=== PATIENT | female | born 1945 | race Caucasian/White ===

== ENCOUNTER → 2018-08-14 | Outpatient (CLI) | payer MEDICARE, BC ==
[~2018-08-14] MED LIST: ACETAMINOPHEN120 MG RC; AMITIZA24 MCG PO; AMLODIPINE BESY10 MG PO; ATORVASTATIN CA10 MG PO; BACLOFEN10 MG PO; BENAZEPRIL HCL5 MG PO; CARVEDILOL12.5 MG PO; EVISTA60 MG PO; EXCEDRIN EXTRA1 EAC1; GLIPIZIDE5 MG PO; HYDROCODONE; MELOXICAM7.5 MG PO; METFORMIN HCL500 MG PO; NEXIUM5 MG PO; ROPINIROLE HCL1 MG PO; ULTRAM50 MG PO; VITAMIN B12 INJ; ZANAFLEX2 M1
--- NOTE | 2018-08-14 16:19 | Diagnostic Imaging Report ---
EXAM: Modified barium swallow with Speech Pathologist INDICATION: ^[id number] ^1130 ^DYSPHAGIA COMPARISON: None available. RADIATION DOSE: Fluoroscopy Time: 1.6 min Dose (Kerma) Area Product: 5.68 Gycm2 Air Kerma (AK) value has been reviewed. It is below the limits set by the Radiation Protocol Committee (RPC) committee. FINDINGS: This examination was conducted in conjunction with speech pathologist. No laryngeal penetration or page aspiration was noted. Limited fluoroscopic evaluation of the lower chest shows a probable moderate sliding hiatal hernia. IMPRESSION: No evidence of penetration or aspiration. Please see speech pathology report for detailed description and recommendations. Probable moderate sliding hiatal hernia. Consider correlation with upper endoscopy or biphasic upper GI examination. Signed by: Dr. Guero Lowe M.D. on 08/14/2018 4:16 PM
== END ==
LOC: DX 11:18
PROVIDERS: ATTEND Internal Medicine Gastroenterology
DX: R13.10 Dysphagia, unspecified (principal)
CPT/HCPCS: 74230; 92611; G8996; G8997; G8998

== ENCOUNTER → 2018-10-09 | Outpatient (CLI) | payer MEDICARE, BC ==
[~2018-10-09] MED LIST changes: +IOPAMIDOL 370 MG/ML 200 ML INFUS..BTL INJ ONE; +SODIUM CHLORIDE 0.9% 50ML 50 ML ONE
[2018-10-09 11:27] LABS: CREATININE, SERUM 0.96 mg/dL (0.57-1.11)
--- NOTE | 2018-10-09 13:16 | Diagnostic Imaging Report ---
EXAM: CT ABDOMEN with IV CONTRAST DATE: 10/09/2018 10:19 AM Time stamp on Exam: 12:05 PM INDICATION: Hiatal hernia COMPARISON: None TECHNIQUE: The abdomen was scanned using a multidetector helical scanner with dose sparing technique. Coronal and sagittal reformations were obtained. Routine protocol performed. IV Contrast: 100 cc of Isovue-370 Oral Contrast: Water Radiation Dose: Total DLP 678.92 mGy*cm Estimated effective dose: DLP x 0.015 x size factor FINDINGS: LOWER THORAX: No consolidations. There is a large hiatal hernia. LIVER: No masses BILIARY: The gallbladder is unremarkable. A portion of the gallbladder lies anterior to the liver edge. No ductal dilatation. SPLEEN: No masses PANCREAS: No masses ADRENALS: No nodules KIDNEYS: Symmetric perfusion. Small nonobstructing 4.3 mm right lower pole renal stone. No enhancing masses. No hydronephrosis. GI TRACT: Large hiatal hernia with most of the stomach within the chest. VESSELS: Atherosclerotic vascular calcification. PERITONEUM/RETROPERITONEUM: No free air or fluid LYMPH NODES: No lymphadenopathy SOFT TISSUES: Postoperative changes associated with the left mastectomy. BONES: No suspicious bone lesions. Extensive degenerative changes of the spine. IMPRESSION: 1. Large hiatal hernia. 2. Nonobstructing right lower pole renal stone. Signed by: Dr. Eduard Steve DO on 10/09/2018 1:12 PM
--- NOTE | 2018-10-22 08:16 | Diagnostic Imaging Report ---
#[id number] - MGSCRRT #UNILATERAL RIGHT DIGITAL SCREENING MAMMOGRAM WITH CAD: 10/09/2018 CLINICAL: Routine screening. Comparison is made to exam dated: 08/11/2013 mammogram - [facility]. Current study contains 2 films. The tissue of the right breast is predominantly fatty. Current study was also evaluated with a Computer Aided Detection (CAD) system. There are benign calcifications in the right breast. There also are post operative findings in the right breast with a scar present. No significant masses, calcifications, or other findings are seen in the breast. There has been no significant interval change. IMPRESSION: BENIGN There is no mammographic evidence of malignancy. A 1 year screening mammogram is recommended. The patient will be notified by letter of the results. Eduard Steve Jr., D.O. cw/:10/21/2018 11:14:48 Otolaryngology Surgeon: Tiffanie TORRES)(Daniel), [facility] letter sent: Normal Exam Mammogram BI-RADS: 2 Benign
== END ==
LOC: MAMMO 10:08
PROVIDERS: ATTEND Surgery
DX: Z12.31 Encounter for screening mammogram for malignant neoplasm of breast (principal); K86.9 Disease of pancreas, unspecified
CPT/HCPCS: 36415; 74160; 77067; 82565; 84520; Q9967

== ENCOUNTER → 2019-04-14 | Outpatient (CLI) | payer MEDICARE, BC ==
[~2019-04-14] MED LIST changes: +ASPIRIN325 MG PO; +CYMBALTA20 MG PO; -IOPAMIDOL 370 MG/ML 200 ML INFUS..BTL INJ ONE; +IRON PO; +PRESERVISION A1 EACH PO; +SKELAXIN800 MG PEG; -SODIUM CHLORIDE 0.9% 50ML 50 ML ONE; +VESICARE5 MG PO; +VITAMIN D1000 UNI1 PO; -ZANAFLEX2 M1; +ZANAFLEX2 M1 PO
--- NOTE | 2019-04-14 19:27 | Diagnostic Imaging Report ---
EXAM: CT Abdomen and Pelvis WITHOUT contrast INDICATION: HEMATURIA; ABDOMINAL DISCOMFORT IN COMPARISON: Abdominal CT 10/09/2018. TECHNIQUE: Abdomen and pelvis were scanned utilizing a multidetector helical scanner from the lung base to the pubic symphysis without administration of IV contrast. Absence of intravenous contrast decreases sensitivity for detection of focal lesions and vascular pathology. Coronal and sagittal reformations were obtained. Routine protocol was performed. IV CONTRAST: None ORAL CONTRAST: None COMPLICATIONS: None RADIATION DOSE: Total DLP: 715 mGy*cm Estimated effective dose: (DLP x 0.015 x size factor) mSv CTDIvol has been reviewed. It is below the limits set by the Radiation Protocol Committee (RPC). Dose modulation, iterative reconstruction, and/or weight based adjustment of the mA/kV was utilized to reduce the radiation dose to as low as reasonably achievable. FINDINGS: LINES and TUBES: None. LOWER THORAX: Large hiatal hernia. A 2 mm nodule in the left lower lobe. HEPATOBILIARY: No focal hepatic lesions. No biliary ductal dilation. GALLBLADDER: No radio-opaque stones or sludge. No wall thickening. SPLEEN: No splenomegaly. PANCREAS: There is fatty infiltration of the pancreas. No mass. ADRENALS: No adrenal nodules KIDNEYS/URETERS: The previously seen 4 mm calculus in the right renal inferior pole is no longer present, and there is now a 4 mm calculus at the right vesicoureteral junction. No hydronephrosis. No cystic or solid mass lesions. GI TRACT: No abnormal distention, wall thickening, or evidence of bowel obstruction. Significant colonic diverticulosis. Mild focal sigmoid wall thickening and perisigmoid fat stranding. Appendix is normal. PELVIC ORGANS/BLADDER: Unremarkable. LYMPH NODES: No lymphadenopathy. VESSELS: There is mild atherosclerotic disease in the aorta and major arterial branches. PERITONEUM / RETROPERITONEUM: No free air or fluid. BONES: There are degenerative changes in the lumbar spine. Low bone mass. SOFT TISSUES: Unremarkable. IMPRESSION: 1. A 4 mm calculus at the right vesicoureteral junction without findings of obstruction. 2. Mild findings of uncomplicated sigmoid diverticulitis. 3. Large hiatal hernia Signed by: Francisco Javier Gil MD on 04/14/2019 7:24 PM
== END ==
LOC: CT 16:35
PROVIDERS: ATTEND Family Medicine
DX: R31.9 Hematuria, unspecified (principal); R10.31 Right lower quadrant pain
CPT/HCPCS: 74176

== ENCOUNTER → 2019-06-12 | Day surgery (SDC) | payer MEDICARE, BC ==
[2019-06-10 14:20] LABS: BASOPHILS % 0.5 % (0.0-1.0); EOSINOPHILS # (AUTO) 0.3 (0.0-0.4); EOSINOPHILS % 3.5 % (0.0-6.0); HEMATOCRIT 34.1 % (34.2-44.1); HEMOGLOBIN 10.9 g/dL (12.0-16.0); LYMPHOCYTES # (AUTO) 2.3 (1.0-3.2); LYMPHOCYTES % 30.6 % (18.0-39.1); MEAN CORPUSCULAR HEMOGLOBIN 25.3 pg (28-32); MEAN CORPUSCULAR VOLUME 79.1 fL (81-99); MONOCYTES # (AUTO) 0.7 (0.2-0.8); MONOCYTES % 9.1 % (4.4-11.3); NEUTROPHILS # (AUTO) 4.2 (2.1-6.9); PLATELET COUNT 345 x10e3/uL (140-360); RED BLOOD COUNT 4.31 x10e6/uL (3.6-5.1); RED CELL DISTRIBUTION WIDTH 15.5 % (11.7-14.4)
[~2019-06-12] MED LIST changes: +FENTANYL CITRATE/PF 100MCG/2 ML INJ ONE; +GLUCAGON FOR INJ 1 MG VIAL ONE; +LIDOCAINE HCL 2% LOCAL INJ 5 ML SDV VIAL INJ ONE; +MIDAZOLAM HCL 2 MG/2 ML VIAL ONE; +PROPOFOL IV EMULSION 10 MG/ML 20 ML VIAL ONE; +SIMETHICONE 40 MG/0.6 ML BTL ONE
--- OUTSIDE RECORDS SUMMARY | 2019-06-12 10:02 | XMS REPORT ---
Author Author [facility] Address Unknown Phone Unavailable Care Team Providers Care [employer] Name Role Phone JAZZY MITCHELL Unavailable Unavailable Stephanie TEJADA Unavailable Unavailable CONCHITA SHERMAN Unavailable Unavailable Problems This patient has no known problems. Allergies, Adverse Reactions, Alerts This patient has no known allergies or adverse reactions. Medications This patient has no known medications. Results Test Description Test Time Test Comments Text Results Atomic Results Result Comments CT ABDOMEN/PELVIS WO 2019-04-14 19:07:00 [place] [address] Patient Name: DANIEL CLEANING MR #: [id number] : 1945 Age/Sex: 73/F Req #: [id number] Adm Physician: Ordered by: JAZZY MITCHELL DO Report #: [id number] Location: CT Room/Bed: Procedure: [id number] CT/CT ABDOMEN/PELVIS WO Exam Date: 04/14/19 Exam Time: 1655 REPORT STATUS: Signed EXAM: CT Abdomen and Pelvis WITHOUT contrast INDICA TION: HEMATURIA; ABDOMINAL DISCOMFORT IN COMPARISON: Abdominal CT 10/09/2018. TECHNIQUE: Abdomen and pelvis were scanned utilizing a multidetector helical scanner from the lung base to the pubic symphysis without administration of IV contrast. Absence of intravenous contrast decreases sensitivity for detection of focal lesions and vascular pathology. Coronal and sagittal reformations were obtained. Routine protocol was performed. IV CONTRAST: None ORAL CONTRAST: None COMPLICATIONS: None RADIATION DOSE: Total DLP: 715 mGy*cm Estimated effective dose: (DLP x 0.015 x size factor) mSv CTDIvol has been reviewed. It is below the limits set by the Radiation Protocol Committee (RPC). Dose modulation, iterative reconstruction, and/or weight based adjustment of the mA/kV was utilized to reduce the radiation dose to as low as reasonably achievable. FINDINGS: LINES and TUBES: None. LOWER THORAX: Large hiatal hernia. A 2 mm nodule in the left lower lobe. HEPATOBILIARY: No focal hepatic lesions. No biliary ductal dilation. GALLBLADDER: No radio-opaque stones or sludge. No wall thickening. SPLEEN: No splenomegaly. PANCREAS: There is fatty infiltration of the pancreas. No mass. ADRENALS: No adrenal nodules KIDNEYS/URETERS: The previously seen 4 mm calculus in the r ight renal inferior pole is no longer present, and there is now a 4 mm calculus at the right vesicoureteral junction. No hydronephrosis. No cystic or solid mass lesions. GI TRACT: No abnormal distention, wall thickening, or evidence of bowel obstruction. Significant colonic diverticulosis. Mild focal sigmoid wall thickening and perisigmoid fat stranding. Appendix is normal. PELVIC ORGANS/BLADDER: Unremarkable. LYMPH NODES: No lymphadenopathy. VESSELS: There is mild atherosclerotic disease in the aorta and major arterial branches. PERITONEUM / RETROPERITONEUM: No free air or fluid. BONES: There are degenerative changes in the lumbar spine. Low bone mass. SOFT TISSUES: Unremarkable. IMPRESSION: 1. A 4 mm calculus at the right vesicoureteral junction without findings of obstruction. 2. Mild findings of uncomplicated sigmoid diverticulitis. 3. Large hiatal hernia Signed by: Francisco Javier Gil MD on 04/14/2019 7:24 PM Dictated By: FRANCISCO JAVIER GIL DO 23 Transcribed By: RITA on 04/14/191923 COPY TO: JAZZY MITCHELL DO CT ABDOMEN W 2018-10-09 12:58:00 [place] [address] Patient Name: DANIEL CLEANING MR #: [id number] : 1945 Age/Sex: 72/F [facility] #: [id number] [facility] Physician: Ordered by: RAQUEL TEJADA MD Report #: [id number] Location: [facility] Room/Bed: Procedure: [id number] CT/CT ABDOMEN W Exam Date: Exam Time: REPORT STATUS: Signed EXAM: CT ABDOMEN with IV CONTRAST DATE: 10/09/2018 10:19 AM Time stamp on Exam: 12:05 PM INDICATION: Hiatal hernia COMPARISON: None TECHNIQUE: The abdomen was scanned using a multidetector helical scanner with dose sparing technique. Coronal and sagittal reformations were obtained. Routine protocol performed. IV Contrast: 100 cc of Isovue-370 Oral Contrast: Water Radiation Dose: Total DLP 678.92 mGy*cm Estimated effective dose: DLP x 0.015 x size factor FINDINGS: LOWER THORAX: No consolidations. There is a large hiatal hernia. LIVER: No masses BILIARY: The gallbladder is unremarkable. A portion of the gallbladder lies anterior to the liver edge. No ductal dilatation. SPLEEN: No masses PANCREAS: No masses ADRENALS: No nodules KIDNEYS: Symmetric perfusion. Small nonobstructing 4.3 mm right lower pole renal stone. No enhancing masses. No hydronephrosis. GI TRACT: Large hiatal hernia with most of the stomach within the chest. VESSELS: Atherosclerotic vascular calcification. PERITONEUM/RETROPERITONEUM: No free air or fluid LYMPH NODES: No lymphadenopathy SOFT TISSUES: Postoperative changes associated with the left mastectomy. BONES: No suspicious bone lesions. Extensive degenerative changes of the spine. IMPRESSION: 1. Large hiatal hernia. 2. Nonobstructing right lower pole renal stone. Signed by: Dr. Vandana Steve DO on 10/09/2018 1:12 PM Dictated By: VANDANA STEVE DO 11 Transcribed By: RITA on 10/09/181311 COPY TO: RAQUEL TEJADA MD MAMMOGRAPHY DIGITAL SCR UNI RT 2018-10-09 11:14:00 [facility] [address] [place] [address] Patient Name: DANIEL CLEANING MR #: [id number] : 1945 Age/Sex: 72/F Req #: [id number] Adm Physician: Ordered by: JAZZY MITCHELL DO Report #: [id number] Location: MAMMO Room/Bed: Procedure: [id number] MG/MAMMOGRAPHY DIGITAL SCR UNI RT Exam Date: 10/09/18 Exam Time: 1030 REPORT STATUS: Signed #[id number] - MGSCRRT #UNILATERAL RIGHT DIGITAL SCREENING MAMMOGRAM WITH CAD: 10/09/2018 CLINICAL: Routine screening. Comparison is made to exam dated: 08/11/2013 mammogram - [facility]. Current study contains 2 films. The tissue of the right breast is predominantly fatty. Current study was also evaluated with a Computer Aided Detection (CAD) system. There are benign calcifications in the right breast. There also are post operative findings in the right breast with a scar present. No significant masses, calcifications, or other findings are seen in the breast. There has been no significant interval change. IMPRESSION: BENIGN There is no mammographic evidence of malignancy. A 1 year screening mammogram is recommended. The patient will be notified by letter of the results. Vandana Steve Jr., D.O. cw/:10/21/2018 11:14:48 Production Machine Operator: Tiffanie Gerardo RT(Alicia)(M), [facility] letter sent: Normal Exam Mammogram BI-RADS: 2 Benign Dictated By: VANDANA STEVE DO 111 Transcribed By: GERALDINE on 10/21/181113 COPY TO: JAZZY MITCHELL DO MODIFIED BA. SWALLOW 2018-08-14 16:13:00 [place] [address] Patient Name: DANIEL CLEANING MR #: [id number] : 1945 Age/Sex: 72/F Req #: [id number] [facility] Physician: Ordered by: CONCHITA SHERMAN MD Report #: [id number] Location: DX Room/Bed: Procedure: [id number] DX/MODIFIED BA. SWALLOW Exam Date: 08/14/18 Exam Time: 1130 REPORT STATUS: Signed EXAM: Modified barium swallow with Speech Pathologist INDICATION: [id number] DYSPHAGIA COMPARISON: None available. RADIATION DOSE: Fluoroscopy Time: 1.6 min Dose (Kerma) Area Product: 5.68 Gycm2 Air Kerma (AK) value has been reviewed. It is below the limits set by the Radiation Protocol Committee (RPC) committee. FINDINGS: This examination was conducted in conjunction with speech pathologist. No laryngeal penetration or page aspiration was noted. Limited fluoroscopic evaluation of the lower chest shows a probable moderate sliding hiatal hernia. IMPRESSION: No evidence of penetration or aspiration. Please see speech pathology report for detailed description and recommendations. Probable moderate sliding hiatal hernia. Consider correlation with upper endoscopy or biphasic upper GI examination. Signed by: Dr. Liborio Orozco M.D. on 08/14/2018 4:16 PM Dictated By: LIBORIO OROZCO MD 15 Transcribed By: RITA on 08/14/181615 COPY TO: CONCHITA SHERMAN MD
[2019-06-12 14:25] VITALS: BP 141/68
--- NOTE | 2019-06-12 14:46 | Operative Report ---
DATE OF PROCEDURE: 06/12/2019 SURGEON: Star Davis MD PROCEDURES: Esophagogastroduodenoscopy with esophageal dilatation over a wire and biopsies and colonoscopy. INDICATIONS FOR EGD: Dysphagia. INDICATIONS FOR COLONOSCOPY: Anorectal pain, constipation. MEDICATIONS: The patient was done under MAC, please see anesthesiologist's note. PROCEDURE IN DETAIL: With the patient in left lateral decubitus position, the flexible fiberoptic Olympus gastroscope was introduced into the esophagus under direct visualization without any difficulty. There was a mild stricture noted at the GE junction and that was dilated to size 16 Savary over a wire. The scope was then advanced with ease into the stomach traversing a large approximately 6 cm hiatal hernia. The mucosa overlying the antrum revealed some patchy intense erythema and moderate edema. Biopsies were obtained and sent to stain for H pylori. The pylorus was intubated with ease and the scope was advanced all the way to the second portion of the duodenum. The scope was then withdrawn slowly, mucosa overlying the second portion as well as that of the duodenal bulb appeared to be within normal limits. The scope was then withdrawn back into the stomach and retroflexed and previously described hiatal hernia was also noted in the retroflexed position. The scope was then straightened out, it was subsequently withdrawn. The patient tolerated the procedure well. IMPRESSION: 1. Distal esophagitis, mild. 2. Rule out Pedersen esophagus (not mentioned in the body of the report). 3. Esophageal stricture, GE junction dilated to size 16 Savary over a wire. 4. Large hiatal hernia. 5. Gastritis, biopsied. Biopsies sent to stain for Helicobacter pylori. PLAN: Follow up histology. Increase Nexium 40 mg one p.o. a.c. b.i.d. PROCEDURE IN DETAIL: The patient was then turned around and after adequate lubrication of the anal canal, flexible fiberoptic Olympus colonoscope was inserted into the rectum with ease and advanced all the way to the cecum. Prep overall was suboptimal with retained stools in the colon, primarily in the right colon. Diverticular disease was noted throughout the colon. The scope was then withdrawn slowly and whatever was visualized the mucosa overlying the cecum, ascending colon, transverse, descending, sigmoid, and rectum grossly appeared to be within normal limits. There were no obvious obstructing or constricting lesions. The scope was then retroflexed into the distal rectum and small internal hemorrhoids were noted, none of which was actively bleeding. The scope was then straightened out, it was subsequently withdrawn. The patient tolerated the procedure well. IMPRESSION: 1. Suboptimal prep. 2. Pandiverticulosis. 3. Internal hemorrhoids, none actively bleeding. PLAN: Follow up histology. Initiate high-fiber, low-fat diet. Initiate high-fiber supplement. Start Visbiome one p.o. b.i.d. Star Davis MD [facility]/MODL /[id number] cc: Vikash Bone DO
== END | disposition home or self-care (01) ==
LOC: OR 09:56
PROVIDERS: ATTEND Internal Medicine Gastroenterology
DX: K59.00 Constipation, unspecified (principal); K31.9 Disease of stomach and duodenum, unspecified; K57.30 Diverticulosis of large intestine without perforation or abscess without bleeding; R13.10 Dysphagia, unspecified; K44.9 Diaphragmatic hernia without obstruction or gangrene; Z88.0 Allergy status to penicillin; Z91.018 Allergy to other foods; Z01.812 Encounter for preprocedural laboratory examination; I10 Essential (primary) hypertension; E78.5 Hyperlipidemia, unspecified; E11.9 Type 2 diabetes mellitus without complications; K21.9 Gastro-esophageal reflux disease without esophagitis; Z87.442 Personal history of urinary calculi; K20.9 Esophagitis, unspecified; K22.2 Esophageal obstruction; K29.70 Gastritis, unspecified, without bleeding; K64.8 Other hemorrhoids; Z68.27 Body mass index [BMI] 27.0-27.9, adult; Z79.82 Long term (current) use of aspirin; Z79.84 Long term (current) use of oral hypoglycemic drugs
CPT/HCPCS: 36415 ×2; 43239; 43450; 45378; 82948; 85025; 88305; 88312; J1610; J2001; J2250; J2704; J3010

== ENCOUNTER → 2019-09-10 | Outpatient (CLI) | payer MEDICARE, BC ==
[~2019-09-10] MED LIST changes: -FENTANYL CITRATE/PF 100MCG/2 ML INJ ONE; -GLUCAGON FOR INJ 1 MG VIAL ONE; -LIDOCAINE HCL 2% LOCAL INJ 5 ML SDV VIAL INJ ONE; -MIDAZOLAM HCL 2 MG/2 ML VIAL ONE; -PROPOFOL IV EMULSION 10 MG/ML 20 ML VIAL ONE; -SIMETHICONE 40 MG/0.6 ML BTL ONE
--- NOTE | 2019-09-10 13:54 | Diagnostic Imaging Report ---
Upper GI with air-contrast. History: Hernia. Discussion: The patient was given air crystals, thick barium, and thin barium to drink in upright and prone positions. Multiple images of the esophagus, stomach, and duodenum were obtained. Fluoro time: 0.3 min. Dose: 48 mGy (GERMAN) The esophagus has normal motility. A large hiatal hernia is present. There is no mucosal irregularity or stricture. No reflux was visualized during the course of the examination. The gastric fundus, body, and antrum are normal in appearance. The duodenal bulb and c-loop are normal in normal appearance. A diverticulum is seen arising from the distal duodenum. There is no evidence of duodenitis or extrinsic compression. IMPRESSION: 1. Large hiatal hernia without evidence of esophagitis. 2. Duodenal diverticulum. Signed by: Alireza Baugh on 09/10/2019 1:51 PM
== END ==
LOC: DX 10:24
PROVIDERS: ATTEND Surgery
DX: K44.9 Diaphragmatic hernia without obstruction or gangrene (principal)
CPT/HCPCS: 74246

== ENCOUNTER 2019-09-29 08:16 | Inpatient (IN) | payer MEDICARE, BC ==
[2019-09-24 11:00] LABS: BASOPHILS # (AUTO) 0.1 (0.0-0.1); BASOPHILS % 0.5 % (0.0-1.0); EOSINOPHILS # (AUTO) 0.5 (0.0-0.4); EOSINOPHILS % 5.1 % (0.0-6.0); HEMATOCRIT 33.8 % (34.2-44.1); LYMPHOCYTES # (AUTO) 2.1 (1.0-3.2); LYMPHOCYTES % 20.2 % (18.0-39.1); MEAN CORPUSCULAR HGB CONC 32.5 g/dL (31-35); MONOCYTES # (AUTO) 0.9 (0.2-0.8); MONOCYTES % 8.4 % (4.4-11.3); NEUTROPHILS # (AUTO) 6.9 (2.1-6.9); NEUTROPHILS % 65.5 % (38.7-80.0); PLATELET COUNT 328 x10e3/uL (140-360); RED BLOOD COUNT 4.07 x10e6/uL (3.6-5.1); RED CELL DISTRIBUTION WIDTH 14.2 % (11.7-14.4)
[2019-09-24 11:20] LABS: ALANINE AMINOTRANSFERASE 7 IU/L (0-55); ANION GAP 10.9 mmol/L (8-16); CALCIUM 10.2 mg/dL (8.4-10.2); CARBON DIOXIDE 25 mmol/L (22-29); CHLORIDE 106 mmol/L (98-107); CREATININE, SERUM 0.76 mg/dL (0.57-1.11); EST GLOMERULAR FILTRATION RATE > 60 ML/MIN (60-); GLUCOSE 130 mg/dL (74-118); POTASSIUM 3.9 mmol/L (3.5-5.1); SODIUM 138 mmol/L (136-145)
[2019-09-24 11:32] LABS: ALKALINE PHOSPHATASE 64 IU/L (40-150); BLOOD UREA NITROGEN 15 mg/dL (7-26); BUN/CREATININE RATIO 20 (6-25)
--- NOTE | 2019-09-24 12:46 | Diagnostic Imaging Report ---
EXAM: CHEST 2 VIEWS DATE: 09/24/2019 10:39 AM INDICATION: Preadmission/operative evaluation COMPARISON: CT abdomen/pelvis from 04/14/2019 FINDINGS: The trachea is midline. The lungs are symmetrically expanded without evidence for focal consolidation, pneumothorax, or significant pleural effusion. There is a large gas containing hiatal hernia. Multiple surgical clips noted projecting over the mediastinum and left hemithorax. Atherosclerotic calcifications noted within the aortic arch. The cardiomediastinal silhouette is otherwise unremarkable. No acute osseous abnormality identified. IMPRESSION: No acute cardiopulmonary process identified. Large hiatal hernia. Signed by: Dr. Gonzalez Solares MD on 09/24/2019 12:43 PM
[~2019-09-29] VITALS: Ht 170.2 cm; Wt 79.4 kg
[~2019-09-29 08:16] MED LIST changes: +DHEA25 MG PO; +EXCEDRIN EXTRA1 EAC1 PO; +GLUCOSAMIN-CHO1 EACH PO; +HYALURONIC ACID PO; +HYDROCHLOROTHIA25 MG PO; +MELATONIN3 MG PO
[2019-09-29] MEDS ORDERED: BUPIVACAINE 0.25%/EPI 30ML SDV INJ ONE (11:20)
[2019-09-29] MEDS ORDERED: ACETAMINOPHEN 1000 MG/100 ML 100 ML IV ONE (13:36)
[2019-09-29] MEDS ORDERED: LIDOCAINE HCL 2% LOCAL INJ 5 ML SDV VIAL INJ ONE (13:44)
[2019-09-29] MEDS ORDERED: ONDANSETRON HCL INJ 2MG/ML 2ML 2 MG/ML VIAL ONE (13:44)
[2019-09-29] MEDS ORDERED: SEVOFLURANE INHAL SOLN 250 ML PEN BTL ONE (13:44)
[2019-09-29] MEDS ORDERED: ROCURONIUM BROMIDE 10 MG/ML 5ML VIAL ONE (13:44)
[2019-09-29] MEDS ORDERED: PROPOFOL IV EMULSION 10 MG/ML 20 ML VIAL ONE (13:44)
[2019-09-29] MEDS ORDERED: GLYCOPYRROLATE INJ 0.2 MG/ML VIAL ONE (13:44)
[2019-09-29] MEDS ORDERED: NEOSTIGMINE 1 MG/ML 10ML VIAL ONE (13:44)
[2019-09-29] MEDS ORDERED: DEXAMETHASONE SOD PHOS INJ 4 MG/ML VIAL ONE (13:44)
[2019-09-29] MEDS ORDERED: ONDANSETRON HCL INJ 2MG/ML 2ML 2 MG/ML VIAL IV PRN (14:15)
[2019-09-29] MEDS ORDERED: ACETAMINOPHEN 1000 MG/100 ML IV PRN (14:15)
[2019-09-29] MEDS ORDERED: LEVOFLOXACIN 500MG/D5W 100ML 100 ML IV ONE (14:15)
[2019-09-29] MEDS ORDERED: FENTANYL CITRATE/PF 100MCG/2 ML INJ ONE ×2 (14:42→19:18)
[2019-09-29] MEDS ORDERED: MORPHINE SULFATE INJ 4 MG/ML INJ 1ML ONE ×2 (15:20→15:40)
--- NOTE | 2019-09-29 16:00 | Operative Report ---
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 OPERATION PERFORMED: Laparoscopic repair of large paraesophageal hiatal hernia with Allen fundoplication. ASSISTANTS: 1. Dr. Stanislaw Horowitz. 2. JACKIE Oviedo. ANESTHESIA: General. COMPLICATIONS: None. ESTIMATED BLOOD LOSS: Minimal. DESCRIPTION OF PROCEDURE: With the patient lying in bed in the supine position under good general endotracheal anesthesia, the abdomen was prepped with Betadine solution and draped in the usual manner. A Veress needle was introduced into the upper abdomen and pneumoperitoneum was established without any difficulty. An 11 mm trocar was placed in the left upper abdomen and a 10 mm video laparoscope was placed into the intra-abdominal cavity. Under direct vision, two 5 mm trocars were placed in the subxiphoid area. Another 5 mm trocar was placed in the right upper quadrant and 11 mm trocar was placed in the left anterior axillary line. Video laparoscopy at this point revealed a huge paraesophageal hiatal hernia. There was lot of adhesions in the mediastinum with a large hernia sac present. The rest of the abdominal exploration was otherwise within normal limits. The stomach in the chest was partially twisted behind the esophagus. We went ahead and then first identified the right crura and all of the adhesions of the right crura were taken down. The hernia sac was then opened along the anterior aspect of the right crura and all the way anteriorly to the esophagus. The patient had a previous bougie placed in the stomach. We then went from the left side and similarly cleared up the left crura. The stomach, however, had numerous adhesions up into the chest, where the stomach was stuck to the hiatal hernia sac at the top. The short gastrics were then slowly and carefully taken down and we were then able to bring the stomach down from the mediastinum and the stomach was freed up completely in a circumferential fashion. Once this was done, the whole area was thoroughly irrigated. Perfect hemostasis was ascertained. The large defect was then closed using interrupted sutures of 0 Ethibond bringing the posterior aspect of the crura, right and left side together up until the top and a good crural repair was achieved. After this was done, the Allen fundoplication was then performed by bringing the fundus of the stomach posterior to the esophagus, and a 360-degree wrap was then created using interrupted 0 Ethibond sutures bringing one side of the fundus to the lower esophagus to the other side of the fundus and a good Allen fundoplication was performed. The bougie was then removed. An NG tube was placed into the stomach. The whole area was inspected for bleeding and there was none and the hemostasis was ascertained. The pneumoperitoneum was evacuated and all the trocars were removed under direct vision. The fascia of the 11 mm trocars was closed with 0 Vicryl. All layers were infiltrated on the way out with solution of 0.25% Marcaine. Subcutaneous tissue was approximated with 3-0 Vicryl and the skin was closed with subcuticular 5-0 Vicryl. Benzoin, Steri-Strips, and Band-Aids were applied. The sponge, lap, and needle count was correct. The patient tolerated the procedure well and returned to the recovery room in stable condition. MD BOB Garcia/RACHEL /[id number]
[2019-09-29] MEDS ORDERED: SODIUM CHLORIDE 0.9% 1000ML 1,000 ML ONE (16:42)
[2019-09-29] MEDS: INSULIN REGULAR, HUMAN 100 UNIT/1 ML 3ML VIAL SQ SCH ×2 (18:00→23:57)
[2019-09-29] MEDS: SODIUM CHLORIDE 0.9% 1000ML 1,000 ML IV SCH (18:51)
--- NOTE | 2019-09-29 19:05 | NUR ---
Received nursing report from morning nurse. Pt alert to name, lying in bed HOB 45 degrees. denies pain at this time. NGT right naris in place. Neff draining light chloe urine. Bed low and locked call blake within reach.
[2019-09-29] MEDS ORDERED: MIDAZOLAM HCL 2 MG/2 ML VIAL ONE (19:18)
[2019-09-29 20:00] VITALS: BP 160/72
[2019-09-29 21:00] VITALS: BP 160/72
[2019-09-29] MEDS: CARVEDILOL 12.5 MG TAB PO SCH (21:00)
[2019-09-29] MEDS: PANTOPRAZOLE 40 MG 10ML VIAL IV SCH (21:00)
[2019-09-29] MEDS: AMLODIPINE BESYLATE 10 MG TAB PO SCH (21:00)
--- NOTE | 2019-09-29 21:00 | NUR ---
Completed nursing assessment. Pt alert to name, hospital, time, and diagnosis: hernia repair. Right NGT, on LIWS, every 4 hours irrigation with NS. Aishwarya 16Fr, D/C post op day 2. Last BM 09/28, small hard. Skin warm, dry and intact. Denies pain at this time. c/o restless legs. Oriented to room, call light within reach. Bed low and locked. Will continue to monitor.
[2019-09-29] MEDS: SODIUM CHLORIDE 0.9% 250ML IRRIG IR SCH (22:15)
[2019-09-30] VITALS (8 sets, daily range): BP systolic 140–174; BP diastolic 66–82
[2019-09-30] MEDS: SODIUM CHLORIDE 0.9% 1000ML 1,000 ML IV SCH ×3 (01:50→10:48)
[2019-09-30] MEDS: INSULIN REGULAR, HUMAN 100 UNIT/1 ML 3ML VIAL SQ SCH ×2 (06:00→11:17)
[2019-09-30] MEDS: NITROGLYCERIN 2% OINT 1 GM PKT TOP SCH ×3 (06:00→11:17)
[2019-09-30 06:21] LABS: BASOPHILS % 0.3 % (0.0-1.0); EOSINOPHILS # (AUTO) 0.1 (0.0-0.4); EOSINOPHILS % 0.4 % (0.0-6.0); HEMATOCRIT 30.5 % (34.2-44.1); HEMOGLOBIN 9.8 g/dL (12.0-16.0); LYMPHOCYTES # (AUTO) 2.4 (1.0-3.2); LYMPHOCYTES % 17.7 % (18.0-39.1); MEAN CORPUSCULAR HGB CONC 32.1 g/dL (31-35); MONOCYTES # (AUTO) 1.1 (0.2-0.8); MONOCYTES % 8.1 % (4.4-11.3); NEUTROPHILS % 73.1 % (38.7-80.0); PLATELET COUNT 305 x10e3/uL (140-360); RED BLOOD COUNT 3.63 x10e6/uL (3.6-5.1); RED CELL DISTRIBUTION WIDTH 14.3 % (11.7-14.4)
[2019-09-30 06:38] LABS: ANION GAP 11.1 mmol/L (8-16); BLOOD UREA NITROGEN 11 mg/dL (7-26); BUN/CREATININE RATIO 16 (6-25); CALCIUM 9.1 mg/dL (8.4-10.2); CARBON DIOXIDE 21 mmol/L (22-29); CHLORIDE 110 mmol/L (98-107); EST GLOMERULAR FILTRATION RATE > 60 ML/MIN (60-); GLUCOSE 113 mg/dL (74-118); POTASSIUM 4.1 mmol/L (3.5-5.1); SODIUM 138 mmol/L (136-145)
--- NOTE | 2019-09-30 06:50 | NUR ---
Report given to morning nurse. Pt lying in bed c/o mild LU, informed side effect of nitro.
[2019-09-30] MEDS: SODIUM CHLORIDE 0.9% 250ML IRRIG IR SCH ×3 (07:25→14:59)
--- NOTE | 2019-09-30 08:00 | NUR ---
The pt. reports she wants the nick and n gt tube out and she was advised that the tube will probably remain intact as she just had surgery 09/29. I explained to the pt. that I would call about the cath. She was medicated for pain in the interim.
[2019-09-30] MEDS: HYDROMORPHONE 1MG/1ML INJ IV PRN ×3 (08:15→21:10)
--- NOTE | 2019-09-30 08:30 | NUR ---
The pt. called the dr's office to speak to the dr. after she was told that the n gt was not coming out but I would call the dr about the cath. Dr. Horowitz called to ask if there was something going on and I explained to him what was going on. Order received to remove the cath and explain to the pt. that she is not to call the office and that she needs to talk to the nurse and her problems will be handled that way.
--- NOTE | 2019-09-30 12:30 | NUR ---
The pt. called to state that she is choking and I went immediately to the room and found the pt. sitting on the bedside. She stated I coughed and this thing popped losse and it drained all over my bed. "I don't think this thing is in the right place" She was advised that Dr. Horowitz placed the tube. She then stated that she thinks that she has aspirated some of the fluids. I listened to the pt's lungs and found no change in breath sounds. Her bed was changed and she was ambulated in the hallway. The N g has been irrigate q4hrs as ordered.
--- NOTE | 2019-09-30 19:15 | NUR ---
Received nursing report from morning nurse. Pt alert and orient to name and situation, lying in bed HOB 90 degrees. Denies pain at this time. Call light within reach. Bed low and locked call blake within reach.
[2019-09-30] MEDS: CARVEDILOL 12.5 MG TAB PO SCH (21:00)
[2019-09-30] MEDS: PANTOPRAZOLE 40 MG 10ML VIAL IV SCH (21:00)
[2019-09-30] MEDS: AMLODIPINE BESYLATE 10 MG TAB PO SCH (21:00)
[2019-10-01] VITALS (8 sets, daily range): BP systolic 131–183; BP diastolic 57–85
[2019-10-01] MEDS: HYDROMORPHONE 1MG/1ML INJ IV PRN ×3 (04:50→14:06)
[2019-10-01] MEDS: INSULIN REGULAR, HUMAN 100 UNIT/1 ML 3ML VIAL SQ SCH ×4 (06:00→18:00)
[2019-10-01] MEDS: SODIUM CHLORIDE 0.9% 1000ML 1,000 ML IV SCH ×2 (06:08→11:47)
[2019-10-01 06:12] LABS: BASOPHILS % 0.4 % (0.0-1.0); EOSINOPHILS # (AUTO) 0.4 (0.0-0.4); EOSINOPHILS % 3.9 % (0.0-6.0); HEMATOCRIT 29.7 % (34.2-44.1); HEMOGLOBIN 9.4 g/dL (12.0-16.0); LYMPHOCYTES % 21.3 % (18.0-39.1); MEAN CORPUSCULAR HEMOGLOBIN 26.6 pg (28-32); MEAN CORPUSCULAR HGB CONC 31.6 g/dL (31-35); MEAN CORPUSCULAR VOLUME 84.1 fL (81-99); MONOCYTES # (AUTO) 0.8 (0.2-0.8); MONOCYTES % 8.7 % (4.4-11.3); NEUTROPHILS # (AUTO) 6.2 (2.1-6.9); NEUTROPHILS % 65.2 % (38.7-80.0); PLATELET COUNT 278 x10e3/uL (140-360); RED BLOOD COUNT 3.53 x10e6/uL (3.6-5.1); RED CELL DISTRIBUTION WIDTH 14.6 % (11.7-14.4)
[2019-10-01 06:30] LABS: ANION GAP 9.7 mmol/L (8-16); BLOOD UREA NITROGEN 8 mg/dL (7-26); BUN/CREATININE RATIO 12 (6-25); CALCIUM 9.1 mg/dL (8.4-10.2); CARBON DIOXIDE 21 mmol/L (22-29); CHLORIDE 111 mmol/L (98-107); CREATININE, SERUM 0.68 mg/dL (0.57-1.11); EST GLOMERULAR FILTRATION RATE > 60 ML/MIN (60-); GLUCOSE 93 mg/dL (74-118); POTASSIUM 3.7 mmol/L (3.5-5.1); SODIUM 138 mmol/L (136-145)
--- NOTE | 2019-10-01 07:00 | NUR ---
BEDSIDE SHIFT REPORT RECEIVED FROM NETWORK SYSTEMS OPERATOR RN. PT DENIES NEEDS AT THIS TIME.
--- NOTE | 2019-10-01 07:05 | NUR ---
Report given to morning nurse. Pt lying quietly in bed, HOB 60. No acute distress noted.
[2019-10-01] MEDS: PANTOPRAZOLE 40 MG 10ML VIAL IV SCH (21:11)
[2019-10-01] MEDS: CARVEDILOL 12.5 MG TAB PO SCH (21:12)
[2019-10-01] MEDS: AMLODIPINE BESYLATE 10 MG TAB PO SCH (21:12)
[2019-10-02] VITALS: BP 139/62
[2019-10-02] MEDS: HYDROMORPHONE 1MG/1ML INJ IV PRN (00:09)
--- NOTE | 2019-10-02 03:00 | NUR ---
RESTING WELL .STABLE CONDITION.
[2019-10-02 04:00] VITALS: BP 134/63
[2019-10-02 06:20] LABS: BASOPHILS % 0.4 % (0.0-1.0); EOSINOPHILS # (AUTO) 0.6 (0.0-0.4); EOSINOPHILS % 6.6 % (0.0-6.0); HEMATOCRIT 29.5 % (34.2-44.1); HEMOGLOBIN 9.4 g/dL (12.0-16.0); LYMPHOCYTES # (AUTO) 2.2 (1.0-3.2); LYMPHOCYTES % 25.7 % (18.0-39.1); MEAN CORPUSCULAR HEMOGLOBIN 26.9 pg (28-32); MEAN CORPUSCULAR HGB CONC 31.9 g/dL (31-35); MEAN CORPUSCULAR VOLUME 84.5 fL (81-99); MONOCYTES # (AUTO) 0.9 (0.2-0.8); NEUTROPHILS # (AUTO) 4.9 (2.1-6.9); NEUTROPHILS % 57.1 % (38.7-80.0); PLATELET COUNT 278 x10e3/uL (140-360); RED BLOOD COUNT 3.49 x10e6/uL (3.6-5.1); RED CELL DISTRIBUTION WIDTH 14.4 % (11.7-14.4)
[2019-10-02 06:40] LABS: ANION GAP 10.5 mmol/L (8-16); BLOOD UREA NITROGEN 7 mg/dL (7-26); BUN/CREATININE RATIO 11 (6-25); CALCIUM 9.6 mg/dL (8.4-10.2); CARBON DIOXIDE 21 mmol/L (22-29); CHLORIDE 108 mmol/L (98-107); CREATININE, SERUM 0.66 mg/dL (0.57-1.11); EST GLOMERULAR FILTRATION RATE > 60 ML/MIN (60-); GLUCOSE 91 mg/dL (74-118); POTASSIUM 3.5 mmol/L (3.5-5.1); SODIUM 136 mmol/L (136-145)
--- NOTE | 2019-10-02 06:50 | NUR ---
AMBULATES IN THE ROOM.VOIDED.BED SIDE SHIFT REPORT GIVEN TO THE ONCOMING RN.STABLE CONDITION.
--- NOTE | 2019-10-02 07:02 | NUR ---
walking rounds completed, change of shift report received from date night sitter RN, pt resting, no signs of distress. will continue to assess.
[2019-10-02] MEDS: INSULIN REGULAR, HUMAN 100 UNIT/1 ML 3ML VIAL SQ SCH ×4 (07:30→16:30)
[2019-10-02 08:00] VITALS: BP 160/72
[2019-10-02 08:49] VITALS: BP 160/72
[2019-10-02 11:53] VITALS: BP 166/75
--- NOTE | 2019-10-02 13:36 | NUR ---
Pt's IV to right forearm infiltrated; pt refusing placement of another IV. will page Dr. Horowitz for orders to d/c IV fluids.
--- NOTE | 2019-10-02 13:48 | NUR ---
spoke with Dr. Horowitz who states pt's IV fluids can be d/c'd and she will be discharged later today in the PM.
[2019-10-02 16:17] VITALS: BP 160/70
--- NOTE | 2019-10-02 16:23 | NUR ---
IMM explained to patient, patient signed, copy to patient, copy to chart
[2019-10-02] MEDS ORDERED: TYLENOL WITH C1 EACH PO (18:30)
--- NOTE | 2019-10-02 19:35 | NUR ---
PATIENT WENT HOME IN A STABLE CONDITION.FAMILY MEMBER WITH HER.
== END 2019-10-02 19:19 | disposition home or self-care (01) | DRG 326 ==
LOC: OR 08:16 → PACU V 14:11 → MED/SURG 17:49
PROVIDERS: ADMIT Surgery; ATTEND Surgery
PROC: 0BQT4ZZ Repair Diaphragm, Percutaneous Endoscopic Approach (ICD-10-PCS; 2019-09-29)
PROC: 0DV44ZZ Restriction of Esophagogastric Junction, Percutaneous Endoscopic Approach (ICD-10-PCS; principal; 2019-09-29 11:21)
DX: K44.9 Diaphragmatic hernia without obstruction or gangrene (principal); K56.2 Volvulus; K21.9 Gastro-esophageal reflux disease without esophagitis; I10 Essential (primary) hypertension; E11.9 Type 2 diabetes mellitus without complications; Z88.0 Allergy status to penicillin
CPT/HCPCS: 36415; 71046; 80048; 80053; 82948; 85025; 93005; J1100; J1170; J2001; J2250; J2270; J2405; J2710; J3010; J7030

== ENCOUNTER → 2019-11-19 | Outpatient (CLI) | payer MEDICARE, BC ==
[~2019-11-19] MED LIST changes: +TYLENOL WITH C1 EACH PO
--- NOTE | 2019-11-20 10:42 | Diagnostic Imaging Report ---
#[id number] - [id number] #UNILATERAL RIGHT DIGITAL DIAGNOSTIC MAMMOGRAM WITH CAD: 11/19/2019 CLINICAL: Routine screening. Comparison is made to exam dated: 10/09/2018 mammogram - [facility]. Current study contains 3 films. There are scattered fibroglandular elements in the right breast. Current study was also evaluated with a Computer Aided Detection (CAD) system. Benign appearing calcifications are noted in the right breast. No significant masses, calcifications, or other findings are seen in the breast. IMPRESSION: BENIGN There is no mammographic evidence of malignancy. A 1 year screening mammogram is recommended. The patient will be notified by letter of the results. BRADLEY PARDO M.D. ct/penrad:11/19/2019 13:18:25 Data Officer: Tiffanie FLORES(Alicia)(M), [facility] letter sent: Normal Exam Mammogram BI-RADS: 2 Benign
== END ==
LOC: MAMMO 09:02
PROVIDERS: ATTEND Family Medicine
DX: Z90.12 Acquired absence of left breast and nipple (principal)

== ENCOUNTER 2020-01-16 17:30 | Emergency (ER) | payer MEDICARE, BC ==
[~2020-01-16] VITALS: Ht 170.2 cm; Wt 72.6 kg
[2020-01-16] MEDS ORDERED: SODIUM CHLORIDE 0.9% 1000ML 1,000 ML IV STA (17:49)
[2020-01-16] MEDS ORDERED: ONDANSETRON HCL INJ 2MG/ML 2ML 2 MG/ML VIAL IV ONE (18:00)
[2020-01-16] MEDS ORDERED: IOPAMIDOL 370 MG/ML 200 ML INFUS..BTL INJ ONE (18:50)
[2020-01-16] MEDS ORDERED: METRONIDAZOLE 500MG/NS 100ML 100 ML IV ONE ×2 (19:00→19:04)
[2020-01-16] MEDS ORDERED: LEVOFLOXACIN 500 MG TAB PO ONE ×2 (19:00→19:45)
[2020-01-16] MEDS ORDERED: ONDANSETRON HCL INJ 2MG/ML 2ML 2 MG/ML VIAL ONE (19:03)
[2020-01-16] MEDS ORDERED: SODIUM CHLORIDE 0.9% 1000ML 1,000 ML ONE (19:04)
[2020-01-16] MEDS ORDERED: CIPROFLOXACIN 500 MG TAB PO ONE (19:30)
--- NOTE | 2020-01-16 20:07 | Diagnostic Imaging Report ---
EXAM: CT Abdomen and Pelvis WITH contrast INDICATION: look for perforated diverticulitis COMPARISON: Multiple prior abdominal CT examinations most recent dated 01/05/2020. TECHNIQUE: Abdomen and pelvis were scanned utilizing a multidetector helical scanner from the lung base to the pubic symphysis without administration of IV contrast. Absence of intravenous contrast decreases sensitivity for detection of focal lesions and vascular pathology. Coronal and sagittal reformations were obtained. Routine protocol was performed. IV CONTRAST: None ORAL CONTRAST: None COMPLICATIONS: None RADIATION DOSE: Total DLP: 612.91 mGy*cm Estimated effective dose: (DLP x 0.015 x size factor) mSv CTDIvol has been reviewed. It is below the limits set by the Radiation Protocol Committee (RPC). Dose modulation, iterative reconstruction, and/or weight based adjustment of the mA/kV was utilized to reduce the radiation dose to as low as reasonably achievable. FINDINGS: LINES and TUBES: None. LOWER THORAX: Large hiatal hernia. A 2 mm nodule in the left lower lobe. HEPATOBILIARY: No focal hepatic lesions. No biliary ductal dilation. GALLBLADDER: No radio-opaque stones or sludge. No wall thickening. SPLEEN: No splenomegaly. PANCREAS: There is fatty infiltration of the pancreas. There is a 1.7 cm cystic lesion in the pancreatic neck (series 3, image 31), unchanged from prior exam. ADRENALS: No adrenal nodules KIDNEYS/URETERS: A 2 mm nonobstructive right renal calculus (series 3, image 40). No hydronephrosis. No cystic or solid mass lesions. No stones. GI TRACT: There is a moderate size hiatal hernia with thickening of distal esophagus. Significant sigmoid diverticulosis with mild sigmoid wall thickening and perisigmoid fat stranding similar to prior exam. There is no evidence of perforation, phlegmon or abscess formation. Appendix is normal. PELVIC ORGANS/BLADDER: Unremarkable. LYMPH NODES: No lymphadenopathy. VESSELS: There is mild atherosclerotic disease in the aorta and major arterial branches. PERITONEUM / RETROPERITONEUM: No free air or fluid. BONES: There are degenerative changes in the lumbar spine. There is grade 1 anterolisthesis of L4 on L5 and grade 1 retrolisthesis of L2 on L3 similar to prior exam. SOFT TISSUES: Unremarkable. IMPRESSION: 1. Unchanged uncomplicated sigmoid diverticulitis. 2. Moderate size hiatal hernia with thickening of distal esophagus. Recommend further evaluation with endoscopy. 3. New 2 mm nonobstructive right renal calculus. 4. Stable 1.7 cm cystic lesion in the pancreatic neck. This could represent a pancreatic cyst or cystic tumor. Recommend further evaluation with MRCP. Signed by: Jose Chacko MD on 01/16/2020 8:03 PM
[2020-01-16 20:39] VITALS: BP 172/79
== END 2020-01-16 20:42 | disposition home or self-care (01) ==
LOC: FSED 17:30
DX: R10.32 Left lower quadrant pain (principal); K57.32 Diverticulitis of large intestine without perforation or abscess without bleeding; I10 Essential (primary) hypertension; E11.9 Type 2 diabetes mellitus without complications; Z85.3 Personal history of malignant neoplasm of breast
CPT/HCPCS: 74177; 80053; 81003; 85025; 85379; 99284; J2405; J7030; Q9967

== ENCOUNTER → 2020-01-29 | Outpatient (CLI) | payer MEDICARE, BC ==
[~2020-01-29] MED LIST changes: +GADOBENATE DIMEGLUMINE 1 ML IV ONE; +SODIUM CHLORIDE 0.9% 50ML 50 ML ONE
[2020-01-29 11:15] LABS: BLOOD UREA NITROGEN 7 mg/dL (7-26); BUN/CREATININE RATIO 8 (6-25); CREATININE, SERUM 0.84 mg/dL (0.57-1.11); EST GLOMERULAR FILTRATION RATE > 60 ML/MIN (60-)
--- NOTE | 2020-01-30 14:41 | Diagnostic Imaging Report ---
MRCP (magnetic resonance cholangiopancreatography) HISTORY: Pancreatic lesion Comparison: CT abdomen and pelvis 01/16/2020 Technique: Multiplanar and multisequence MRI images of the abdomen were obtained without contrast. Three-dimensional reconstructed images of the biliary tree are also reviewed. FINDINGS: The common bile duct appears normal in caliber. No intrahepatic biliary dilation. No pancreatic ductal dilation. No intrinsic or extrinsic defect is identified within the biliary system. The gallbladder demonstrates no intraluminal defect, wall thickening, or pericholecystic fluid. No mass is identified in the region of the ampulla or pancreatic head. There are multiple nonenhancing rounded T2 hyperintense structures which lie adjacent to the main pancreatic duct. The structures measure up to 15 mm in size and probably represent multiple side branch IPMNs. Unremarkable appearance of the liver, pancreas, spleen, adrenal glands, and kidneys. The visualized bowel loops appear normal in caliber. No free fluid or lymphadenopathy is seen within the abdomen. 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 Signed by: Sherwin Holcomb MD on 01/30/2020 2:38 PM
== END ==
LOC: MRI 10:03
PROVIDERS: ATTEND Internal Medicine Gastroenterology
DX: K86.9 Disease of pancreas, unspecified (principal)
CPT/HCPCS: 36415; 74183; 82565; 84520; A9577

== ENCOUNTER → 2020-04-22 | Day surgery (SDC) | payer MEDICARE, BC, OTHER ==
[2020-04-16 13:45] LABS: BASOPHILS % 0.6 % (0.0-1.0); EOSINOPHILS # (AUTO) 0.1 (0.0-0.4); EOSINOPHILS % 2.1 % (0.0-6.0); HEMOGLOBIN 11.8 g/dL (12.0-16.0); LYMPHOCYTES % 32.6 % (18.0-39.1); MEAN CORPUSCULAR HEMOGLOBIN 27.1 pg (28-32); MEAN CORPUSCULAR HGB CONC 31.9 g/dL (31-35); MEAN CORPUSCULAR VOLUME 85.1 fL (81-99); MONOCYTES # (AUTO) 0.5 (0.2-0.8); MONOCYTES % 8.8 % (4.4-11.3); NEUTROPHILS # (AUTO) 3.4 (2.1-6.9); NEUTROPHILS % 55.6 % (38.7-80.0); PLATELET COUNT 285 x10e3/uL (140-360); RED BLOOD COUNT 4.35 x10e6/uL (3.6-5.1); RED CELL DISTRIBUTION WIDTH 14.4 % (11.7-14.4)
--- NOTE | 2020-04-19 17:32 | Progress Note ---
DATE: SUBJECTIVE: is doing well. REVIEW OF SYSTEMS: HEENT: Negative. PULMONARY: Negative. PHYSICAL EXAMINATION: GENERAL: Currently alert, oriented. VITAL SIGNS: Stable, currently afebrile. She is saturating well on room air. HEENT: Not icteric. NECK: Supple. CHEST: Clear. COR: S1, S2. ABDOMEN: Soft. IMPRESSION AND PLAN: Coronavirus disease-19, doing well, to be discharged home with oxygen if needed, aspirin 325 mg p.o. daily for 30 days, vitamin C, zinc, and vitamin D supplement. MD DAVIDSON Barker/RACHEL /[id number]
[~2020-04-22] MED LIST changes: +DICYCLOMINE HCL20 MG PO; -GADOBENATE DIMEGLUMINE 1 ML IV ONE; +GLUCAGON FOR INJ 1 MG VIAL ONE; +HYOSCYAMINE 0.125 MG TAB ONE; +LIDOCAINE HCL 2% LOCAL INJ 5 ML SDV VIAL INJ ONE; +METOCLOPRAMIDE HCL 10 MG/2ML VIAL ONE; +PROPOFOL IV EMULSION 10 MG/ML 20 ML VIAL ONE; -SODIUM CHLORIDE 0.9% 50ML 50 ML ONE
[2020-04-22 10:40] VITALS: BP 147/87
--- NOTE | 2020-04-22 11:56 | Operative Report ---
DATE OF PROCEDURE: 04/22/2020 SURGEON: Star Davis MD PROCEDURES: EGD with biopsies and esophageal dilatation over a wire and a colonoscopy with polypectomy. INDICATIONS FOR EGD: Dysphagia. INDICATIONS FOR COLONOSCOPY: Colorectal cancer screening, anemia. MEDICATIONS: The patient was done under MAC, please see anesthesiologist's note. PROCEDURE IN DETAIL: With the patient in the left lateral decubitus position, a flexible fiberoptic Olympus gastroscope was introduced into the esophagus under direct visualization without any difficulty. There was some patchy erythema noted in distal esophagus. A mild stricture was noted at the GE junction that was dilated to size 16 Savary over a wire. The scope was then advanced with ease into the stomach traversing a 4 cm hiatal hernia. Mucosa overlying the antrum and the body revealed some patchy erythema and low-grade to moderate edema, and biopsies were obtained and sent to stain for H. pylori. Pylorus was of normal contour and shape, was intubated with ease and the scope was advanced all the way to the second portion of the duodenum. The mucosa overlying the proximal second portion and duodenal bulb appeared to be within normal limits. The scope was then withdrawn back into the stomach and retroflexed, and previously described hiatal hernia was also noted in the retroflexed position. The scope was then straightened out, it was subsequently withdrawn, and the patient tolerated the procedure well. IMPRESSION: 1. Distal esophagitis, mild. 2. Esophageal stricture GE junction, dilated to size 16 Savary over a wire. 3. Hiatal hernia, 4 cm in size. 4. Gastritis, biopsied, biopsies sent to stain for Helicobacter pylori. PLAN: Follow up histology. Increase Nexium to 40 mg one p.o. before meals b.i.d. The patient was then turned around and after adequate lubrication of the anal canal, a flexible fiberoptic Olympus colonoscope was inserted into the rectum with ease and advanced all the way to the cecum. An approximately 4 mm sessile polyp was removed per cold snare polypectomy from the cecum. The scope was then withdrawn slowly, mucosa overlying the ascending colon revealed diverticular disease, which was of note noted throughout the colon. A minute polyp was removed per cold biopsy forceps from the transverse colon. The descending and sigmoid other than for diverticular disease grossly appeared to be within normal limits. The scope was then retroflexed into the distal rectum and small internal hemorrhoids were noted, none of which was actively bleeding. The scope was then straightened out, it was subsequently withdrawn, and the patient tolerated the procedure well. IMPRESSION: 1. Pandiverticulosis. 2. Cecal polyp removed per cold snare polypectomy. 3. Transverse colon polyp, cold biopsied. 4. Internal hemorrhoids, none actively bleeding. PLAN: Follow up histology. Initiate high-fiber, low-fat diet. Initiate high-fiber supplement. The patient might benefit from a followup colonoscopy in 5 years. Star Davis MD [facility] [place] /[id number] cc: Vikash Bone DO
== END | disposition home or self-care (01) ==
LOC: OR 07:24
PROVIDERS: ATTEND Internal Medicine Gastroenterology
DX: D64.9 Anemia, unspecified (principal); D12.0 Benign neoplasm of cecum; D12.3 Benign neoplasm of transverse colon; K29.70 Gastritis, unspecified, without bleeding; K22.2 Esophageal obstruction; K20.9 Esophagitis, unspecified; K57.92 Diverticulitis of intestine, part unspecified, without perforation or abscess without bleeding; K21.9 Gastro-esophageal reflux disease without esophagitis; K58.9 Irritable bowel syndrome, unspecified; K28.9 Gastrojejunal ulcer, unspecified as acute or chronic, without hemorrhage or perforation; K59.09 Other constipation; K44.9 Diaphragmatic hernia without obstruction or gangrene; K64.8 Other hemorrhoids; K86.89 Other specified diseases of pancreas; E11.9 Type 2 diabetes mellitus without complications; I10 Essential (primary) hypertension; G25.81 Restless legs syndrome; M19.90 Unspecified osteoarthritis, unspecified site; I48.92 Unspecified atrial flutter; E78.5 Hyperlipidemia, unspecified; F95.9 Tic disorder, unspecified; Z01.810 Encounter for preprocedural cardiovascular examination; Z01.812 Encounter for preprocedural laboratory examination; Z11.59 Encounter for screening for other viral diseases; Z79.82 Long term (current) use of aspirin; Z79.84 Long term (current) use of oral hypoglycemic drugs
CPT/HCPCS: 36415 ×2; 43239; 43248; 45380; 45385; 82948; 85025; 93005; J1610; J2001; J2704; J2765; U0002; 45378

== ENCOUNTER → 2020-12-22 | Day surgery (SDC) | payer MEDICARE, BC ==
[2020-12-20 11:27] LABS: BASOPHILS % 0.4 % (0.0-1.0); EOSINOPHILS # (AUTO) 0.2 (0.0-0.4); HEMOGLOBIN 12.2 g/dL (12.0-16.0); LYMPHOCYTES # (AUTO) 2.3 (1.0-3.2); MEAN CORPUSCULAR HEMOGLOBIN 27.9 pg (28-32); MEAN CORPUSCULAR HGB CONC 32.1 g/dL (31-35); MEAN CORPUSCULAR VOLUME 86.8 fL (81-99); MONOCYTES # (AUTO) 0.6 (0.2-0.8); MONOCYTES % 8.1 % (4.4-11.3); NEUTROPHILS # (AUTO) 4.3 (2.1-6.9); NEUTROPHILS % 57.2 % (38.7-80.0); PLATELET COUNT 307 x10e3/uL (140-360); RED BLOOD COUNT 4.38 x10e6/uL (3.6-5.1); RED CELL DISTRIBUTION WIDTH 13.2 % (11.7-14.4)
[~2020-12-22] MED LIST changes: -GLUCAGON FOR INJ 1 MG VIAL ONE; -HYOSCYAMINE 0.125 MG TAB ONE; +LINZESS72 MCG PO; -METOCLOPRAMIDE HCL 10 MG/2ML VIAL ONE; +MIDAZOLAM HCL 2 MG/2 ML VIAL ONE
[2020-12-22 08:20] VITALS: BP 105/51
== END | disposition home or self-care (01) ==
LOC: ENDO 05:21
PROVIDERS: ATTEND Internal Medicine Gastroenterology
DX: K22.2 Esophageal obstruction (principal); K29.70 Gastritis, unspecified, without bleeding; K20.90 Esophagitis, unspecified without bleeding; K44.9 Diaphragmatic hernia without obstruction or gangrene; K27.9 Peptic ulcer, site unspecified, unspecified as acute or chronic, without hemorrhage or perforation; K21.9 Gastro-esophageal reflux disease without esophagitis; M19.90 Unspecified osteoarthritis, unspecified site; G25.81 Restless legs syndrome; G62.9 Polyneuropathy, unspecified; E11.9 Type 2 diabetes mellitus without complications; I10 Essential (primary) hypertension; R00.1 Bradycardia, unspecified; E78.5 Hyperlipidemia, unspecified; Z01.810 Encounter for preprocedural cardiovascular examination; Z01.812 Encounter for preprocedural laboratory examination; Z20.822 Contact with and (suspected) exposure to COVID-19; Z79.82 Long term (current) use of aspirin; Z79.84 Long term (current) use of oral hypoglycemic drugs; Z87.442 Personal history of urinary calculi; Z85.3 Personal history of malignant neoplasm of breast; Z92.21 Personal history of antineoplastic chemotherapy
CPT/HCPCS: 36415 ×2; 43248; 82948; 85025; 93005; J2001; J2250; J2704; U0002; 43450

== ENCOUNTER → 2021-02-01 | Outpatient (CLI) | payer MEDICARE, BC ==
[2021-01-27 10:10] LABS: BASOPHILS % 0.5 % (0.0-1.0); EOSINOPHILS # (AUTO) 0.2 (0.0-0.4); EOSINOPHILS % 2.7 % (0.0-6.0); HEMATOCRIT 36.5 % (34.2-44.1); HEMOGLOBIN 12.2 g/dL (12.0-16.0); LYMPHOCYTES # (AUTO) 2.2 (1.0-3.2); LYMPHOCYTES % 33.8 % (18.0-39.1); MEAN CORPUSCULAR HEMOGLOBIN 28.4 pg (28-32); MEAN CORPUSCULAR HGB CONC 33.4 g/dL (31-35); MEAN CORPUSCULAR VOLUME 84.9 fL (81-99); MONOCYTES # (AUTO) 0.6 (0.2-0.8); MONOCYTES % 8.8 % (4.4-11.3); NEUTROPHILS # (AUTO) 3.6 (2.1-6.9); PLATELET COUNT 285 x10e3/uL (140-360); RED CELL DISTRIBUTION WIDTH 13.3 % (11.7-14.4)
[~2021-02-01] MED LIST changes: -LIDOCAINE HCL 2% LOCAL INJ 5 ML SDV VIAL INJ ONE; -MIDAZOLAM HCL 2 MG/2 ML VIAL ONE; -PROPOFOL IV EMULSION 10 MG/ML 20 ML VIAL ONE
== END ==
LOC: DX 07:12
PROVIDERS: ATTEND Surgery
DX: R10.13 Epigastric pain (principal); Z20.822 Contact with and (suspected) exposure to COVID-19
CPT/HCPCS: 36415; 74246; 85025; 93005; U0002

== ENCOUNTER → 2021-08-23 | Outpatient (CLI) | payer MEDICARE, BC | LOC: MRI 12:05 | PROVIDERS: ATTEND Family Medicine | DX: G44.52 New daily persistent headache (NDPH) (principal) | CPT/HCPCS: 70551; 72141 ==

== ENCOUNTER 2021-10-13 10:00 | Outpatient (RCR) | payer MEDICARE, BC | END 2021-10-14 | LOC: PT 10:00 | PROVIDERS: ATTEND Neurological Surgery | DX: M50.120 Mid-cervical disc disorder, unspecified level (principal) | CPT/HCPCS: 97139 ==

== ENCOUNTER 2021-10-20 13:48 | Outpatient (RCR) | payer MEDICARE, BC | END 2021-11-14 | LOC: PT 13:48 | PROVIDERS: ATTEND Neurological Surgery | DX: M50.120 Mid-cervical disc disorder, unspecified level (principal) ==

== ENCOUNTER 2021-12-01 06:22 | Observation (INO) | payer MEDICARE, BC ==
[2021-11-30 11:02] LABS: BASOPHILS % 0.6 % (0.0-1.0); EOSINOPHILS # (AUTO) 0.3 (0.0-0.4); EOSINOPHILS % 3.9 % (0.0-6.0); HEMATOCRIT 39.1 % (34.2-44.1); HEMOGLOBIN 12.4 g/dL (12.0-16.0); LYMPHOCYTES % 28.1 % (18.0-39.1); MEAN CORPUSCULAR HEMOGLOBIN 28.8 pg (28-32); MEAN CORPUSCULAR HGB CONC 31.7 g/dL (31-35); MEAN CORPUSCULAR VOLUME 90.7 fL (81-99); MONOCYTES # (AUTO) 0.6 (0.2-0.8); MONOCYTES % 7.7 % (4.4-11.3); NEUTROPHILS # (AUTO) 4.3 (2.1-6.9); NEUTROPHILS % 59.4 % (38.7-80.0); PLATELET COUNT 329 x10e3/uL (140-360); RED BLOOD COUNT 4.31 x10e6/uL (3.6-5.1); RED CELL DISTRIBUTION WIDTH 14.3 % (11.7-14.4)
[2021-11-30 11:34] LABS: INR 0.88; PROTHROMBIN TIME 12.6 seconds (11.9-14.5)
[2021-11-30 11:35] LABS: PARTIAL THROMBOPLASTIN TIME 29.8 seconds (23.8-35.5)
[2021-11-30 11:59] LABS: ANION GAP 10.9 mmol/L (8-16); CALCIUM 10.1 mg/dL (8.4-10.2); CREATININE, SERUM 0.73 mg/dL (0.57-1.11); POTASSIUM 3.9 mmol/L (3.5-5.1)
[~2021-12-01] VITALS: Ht 170.2 cm; Wt 72.6 kg
[~2021-12-01 06:22] MED LIST changes: +TRULANCE3 MG PO
[2021-12-01] MEDS ORDERED: Vancomycin IV 1 GM VIAL ONE ×2 (06:46→08:50)
[2021-12-01] MEDS ORDERED: THROMBIN FOR SOLN 5,000 UNIT VIAL ONE (06:46)
[2021-12-01] MEDS ORDERED: SODIUM CHLORIDE 0.9% 50ML 0 ML ONE (08:50)
[2021-12-01] MEDS ORDERED: SODIUM CHLORIDE 0.9% 250ML 250 ML ONE (08:52)
[2021-12-01] MEDS ORDERED: HYDROCODON-ACE1 EA12 PO (10:21)
[2021-12-01] MEDS ORDERED: MAGNESIUM/ALUMINUM/SIMETHICONE 30 ML UDC PO PRN (10:30)
[2021-12-01] MEDS ORDERED: LUBIPROSTONE 24 MCG CAP PO PRN (10:30)
[2021-12-01] MEDS ORDERED: (Linaclotide (Linzess) 72 MCG) PO PRN (10:30)
[2021-12-01] MEDS ORDERED: ONDANSETRON HCL INJ 2MG/ML 2ML 2 MG/ML VIAL IV PRN (10:30)
[2021-12-01] MEDS ORDERED: PROMETHAZINE HCL (IM) 25 MG/ML VIAL IM PRN (10:30)
[2021-12-01] MEDS ORDERED: MELATONIN 3 MG TAB PO PRN (10:30)
[2021-12-01] MEDS ORDERED: DICYCLOMINE HCL 20 MG TAB PO PRN (10:30)
[2021-12-01] MEDS ORDERED: CARISOPRODOL 350 MG TAB PO PRN (10:30)
[2021-12-01] MEDS ORDERED: (Plecanatide (Trulance) 3 MG) PO PRN (10:30)
[2021-12-01] MEDS ORDERED: ZOLPIDEM TARTRATE 5 MG TAB PO PRN (10:30)
[2021-12-01] MEDS ORDERED: ACETAMINOPHEN 325 MG TAB PO PRN (10:30)
[2021-12-01] MEDS ORDERED: FENTANYL CITRATE/PF 100MCG/2 ML INJ ONE ×2 (10:46→12:49)
[2021-12-01] MEDS ORDERED: HYDROMORPHONE 1MG/1ML INJ ONE (11:05)
[2021-12-01] MEDS ORDERED: PROPOFOL IV EMULSION 10 MG/ML 20 ML VIAL ONE (12:37)
[2021-12-01] MEDS ORDERED: DEXAMETHASONE SOD PHOS INJ 4 MG/ML SDV ONE (12:37)
[2021-12-01] MEDS ORDERED: SEVOFLURANE INHAL SOLN 250 ML PEN BTL ONE (12:37)
[2021-12-01] MEDS ORDERED: EPHEDRINE SULFATE INJ 50 MG/ML VIAL ONE (12:37)
[2021-12-01] MEDS ORDERED: LIDOCAINE HCL 2% LOCAL INJ 5 ML SDV VIAL INJ ONE (12:37)
[2021-12-01] MEDS ORDERED: POVIDONE IODINE 0.05% 0.05 % ML PO ONE (12:37)
[2021-12-01] MEDS ORDERED: ONDANSETRON HCL INJ 2MG/ML 2ML 2 MG/ML VIAL ONE (12:37)
[2021-12-01] MEDS ORDERED: ROCURONIUM BROMIDE 10 MG/ML 5ML VIAL IV ONE (12:37)
[2021-12-01] MEDS ORDERED: MIDAZOLAM HCL 2 MG/2 ML VIAL ONE (12:49)
[2021-12-01 12:56] VITALS: BP 145/65
[2021-12-01 13:05] VITALS: BP 145/65
[2021-12-01] MEDS ORDERED: HYDROMORPHONE 1MG/1ML INJ IV PRN (13:15)
[2021-12-01] MEDS: LACTATED RINGER'S 1,000 ML IV SCH ×2 (13:30→22:05)
[2021-12-01] MEDS: MORPHINE SULFATE 5 MG/ML VIAL IM PRN ×2 (14:44→18:30)
[2021-12-01 16:00] VITALS: BP 159/78
[2021-12-01] MEDS ORDERED: NON-FORMULARY MEDICATION (Esomeprazole Magnesium (Nexium) 40 MG) PO SCH (17:00)
[2021-12-01] MEDS: PANTOPRAZOLE SOD 40 MG TABEC PO SCH (17:11)
[2021-12-01 20:00] VITALS: BP 141/56
[2021-12-01] MEDS: OXYCODONE/ACETAMINOPHEN 5-325 1 EACH TABLET PO PRN (20:59)
[2021-12-01] MEDS ORDERED: ATORVASTATIN 10 MG TAB PO SCH (21:00)
[2021-12-01] MEDS ORDERED: CARVEDILOL 12.5 MG TAB PO SCH (21:00)
[2021-12-01] MEDS ORDERED: AMLODIPINE BESYLATE 10 MG TAB PO SCH (21:00)
[2021-12-01] MEDS ORDERED: ROPINIROLE HCL 2 MG TAB PO SCH (21:00)
[2021-12-01] MEDS ORDERED: Vancomycin IV 1 GM in SODIUM CHLORIDE 0.9% 250ML 250 ML IV ONE (21:30)
[2021-12-02] VITALS: BP 135/53
[2021-12-02 04:00] VITALS: BP 162/68
[2021-12-02] MEDS: LACTATED RINGER'S 1,000 ML IV SCH (05:04)
[2021-12-02] MEDS: OXYCODONE/ACETAMINOPHEN 5-325 1 EACH TABLET PO PRN (05:34)
[2021-12-02] MEDS ORDERED: GLIPIZIDE 5 MG TAB PO SCH (07:30)
[2021-12-02 07:46] VITALS: BP 134/55
[2021-12-02 07:54] VITALS: BP 134/55
[2021-12-02] MEDS ORDERED: RALOXIFENE HCL 60 MG TAB PO SCH (09:00)
[2021-12-02] MEDS ORDERED: HYDROCHLOROTHIAZIDE 25 MG TAB PO SCH (09:00)
[2021-12-02] MEDS ORDERED: BENAZEPRIL HCL 10 MG TAB PO SCH (09:00)
[2021-12-02] MEDS ORDERED: DULOXETINE HCL 30 MG DELAYED RELEASE PO SCH (09:00)
[2021-12-02] MEDS ORDERED: CHOLECALCIFEROL 1,000 UNIT TAB PO SCH (09:00)
[2021-12-02] MEDS: PANTOPRAZOLE SOD 40 MG TABEC PO SCH (09:04)
== END 2021-12-02 09:44 | disposition home or self-care (01) ==
LOC: OR 06:22 → PACU V 10:16 → MED/SURG 12:10
PROVIDERS: ADMIT Neurological Surgery; ATTEND Neurological Surgery
DX: M50.120 Mid-cervical disc disorder, unspecified level (principal); Z20.822 Contact with and (suspected) exposure to COVID-19; I25.10 Atherosclerotic heart disease of native coronary artery without angina pectoris; I10 Essential (primary) hypertension; E78.5 Hyperlipidemia, unspecified; I48.91 Unspecified atrial fibrillation; Z79.01 Long term (current) use of anticoagulants
CPT/HCPCS: 22551; 22552; 22845; 36415 ×2; 71046; 72040; 76000; 80048; 82948; 85025; 85610; 85730; 86850; 86900; 88304; 88311; C1763; G0378 ×2; J1100; J1170; J2001; J2250; J2270; J2405; J2550; J2704; J3010; J3370; J7050; J7121; S0164 ×2; U0002

== ENCOUNTER → 2021-12-29 | Outpatient (CLI) | payer MEDICARE, BC ==
[~2021-12-29] MED LIST changes: +HYDROCODON-ACE1 EA12 PO
== END ==
LOC: RAD 11:23
PROVIDERS: ATTEND Neurological Surgery
DX: M50.20 Other cervical disc displacement, unspecified cervical region (principal); M43.22 Fusion of spine, cervical region
CPT/HCPCS: 72052

== ENCOUNTER 2022-01-10 09:53 | Outpatient (RCR) | payer MEDICARE, BC | END 2022-01-12 | LOC: PT 09:53 | PROVIDERS: ATTEND Neurological Surgery | DX: M50.120 Mid-cervical disc disorder, unspecified level (principal); M53.82 Other specified dorsopathies, cervical region ==

== ENCOUNTER 2022-01-17 10:51 | Outpatient (RCR) | payer MEDICARE, BC | END 2022-02-11 | LOC: PT 10:51 | PROVIDERS: ATTEND Neurological Surgery | DX: M50.120 Mid-cervical disc disorder, unspecified level (principal); M53.82 Other specified dorsopathies, cervical region ==

== ENCOUNTER → 2022-03-14 | Day surgery (SDC) | payer MEDICARE, BC ==
[2022-03-10 13:16] LABS: BASOPHILS % 0.5 % (0.0-1.0); EOSINOPHILS % 0.5 % (0.0-6.0); HEMATOCRIT 35.4 % (34.2-44.1); HEMOGLOBIN 11.1 g/dL (12.0-16.0); LYMPHOCYTES # (AUTO) 1.5 (1.0-3.2); LYMPHOCYTES % 19.5 % (18.0-39.1); MEAN CORPUSCULAR HEMOGLOBIN 28.9 pg (28-32); MEAN CORPUSCULAR HGB CONC 31.4 g/dL (31-35); MEAN CORPUSCULAR VOLUME 92.2 fL (81-99); MONOCYTES # (AUTO) 0.3 (0.2-0.8); NEUTROPHILS # (AUTO) 5.6 (2.1-6.9); NEUTROPHILS % 75.1 % (38.7-80.0); PLATELET COUNT 282 x10e3/uL (140-360); RED BLOOD COUNT 3.84 x10e6/uL (3.6-5.1); RED CELL DISTRIBUTION WIDTH 13.6 % (11.7-14.4)
[2022-03-10 13:42] LABS: ANION GAP 10.1 mmol/L (8-16); CALCIUM 9.5 mg/dL (8.4-10.2); CREATININE, SERUM 0.77 mg/dL (0.57-1.11); POTASSIUM 4.1 mmol/L (3.5-5.1)
[~2022-03-14] MED LIST changes: +EPHEDRINE SULFATE INJ 50 MG/ML VIAL ONE; +FENTANYL CITRATE/PF 100MCG/2 ML INJ ONE; +HYOSCYAMINE SULFATE 0.5 MG/ML INJ ONE; +MIDAZOLAM HCL 2 MG/2 ML VIAL ONE; +PROPOFOL IV EMULSION 10 MG/ML 20 ML VIAL ONE
[2022-03-14 14:50] VITALS: BP 133/76
== END | disposition home or self-care (01) ==
LOC: OR 11:33
PROVIDERS: ATTEND Internal Medicine Gastroenterology
DX: K29.50 Unspecified chronic gastritis without bleeding (principal); Z86.010 Personal history of colon polyps; K22.2 Esophageal obstruction; K20.90 Esophagitis, unspecified without bleeding; K44.9 Diaphragmatic hernia without obstruction or gangrene; Z98.890 Other specified postprocedural states; K57.30 Diverticulosis of large intestine without perforation or abscess without bleeding; K64.8 Other hemorrhoids; R63.4 Abnormal weight loss; E11.9 Type 2 diabetes mellitus without complications; I10 Essential (primary) hypertension; G25.81 Restless legs syndrome; M81.0 Age-related osteoporosis without current pathological fracture; M41.9 Scoliosis, unspecified; K59.04 Chronic idiopathic constipation; Z88.0 Allergy status to penicillin; Z01.812 Encounter for preprocedural laboratory examination; Z20.822 Contact with and (suspected) exposure to COVID-19; Z79.84 Long term (current) use of oral hypoglycemic drugs; Z79.82 Long term (current) use of aspirin; Z79.899 Other long term (current) drug therapy; Z85.3 Personal history of malignant neoplasm of breast
CPT/HCPCS: 36415 ×2; 43239; 43450; 45378; 80048; 82948; 85025; 88305; 88312; C9113; J1980; J2250; J2704; J3010; U0002

== ENCOUNTER → 2022-03-17 | Outpatient (CLI) | payer MEDICARE, BC ==
[~2022-03-17] MED LIST changes: -EPHEDRINE SULFATE INJ 50 MG/ML VIAL ONE; -FENTANYL CITRATE/PF 100MCG/2 ML INJ ONE; -HYOSCYAMINE SULFATE 0.5 MG/ML INJ ONE; +IOPAMIDOL 370 MG/ML 100 ML INFUS..BTL INJ ONE; -MIDAZOLAM HCL 2 MG/2 ML VIAL ONE; -PROPOFOL IV EMULSION 10 MG/ML 20 ML VIAL ONE; +SODIUM CHLORIDE 0.9% 100 ML ONE
== END ==
LOC: CT 11:40
PROVIDERS: ATTEND Internal Medicine Cardiovascular Disease
DX: I65.23 Occlusion and stenosis of bilateral carotid arteries (principal)
CPT/HCPCS: 70498; J7050; Q9967

== ENCOUNTER → 2022-04-13 | Outpatient (RCR) | payer MEDICARE, BC ==
[~2022-04-13] MED LIST changes: -IOPAMIDOL 370 MG/ML 100 ML INFUS..BTL INJ ONE; -SODIUM CHLORIDE 0.9% 100 ML ONE
== END ==
LOC: PT 04-03 09:54
PROVIDERS: ATTEND Neurological Surgery
DX: M50.820 Other cervical disc disorders, mid-cervical region, unspecified level (principal)

== ENCOUNTER 2022-05-11 10:00 | Outpatient (RCR) | payer MEDICARE, BC | END 2022-05-14 | LOC: PT 10:00 | PROVIDERS: ATTEND Neurological Surgery | DX: M50.80 Other cervical disc disorders, unspecified cervical region (principal) | CPT/HCPCS: 97139 ==

== ENCOUNTER → 2022-06-26 | Outpatient (CLI) | payer MEDICARE, BC | LOC: CT 11:28 | PROVIDERS: ATTEND Physical Medicine & Rehabilitation | DX: M81.8 Other osteoporosis without current pathological fracture (principal); M54.2 Cervicalgia; E04.2 Nontoxic multinodular goiter | CPT/HCPCS: 72125; 77080 ==

== ENCOUNTER → 2022-06-26 | Outpatient (CLI) | payer MEDICARE, BC | LOC: RAD 11:42 | PROVIDERS: ATTEND Neurological Surgery | DX: M50.20 Other cervical disc displacement, unspecified cervical region (principal); M43.22 Fusion of spine, cervical region | CPT/HCPCS: 72050 ==

== ENCOUNTER 2022-08-29 18:53 | Inpatient (IN) | payer MEDICARE, BC ==
[~2022-08-29] VITALS: Ht 170.2 cm; Wt 72.6 kg
[2022-08-29] MEDS ORDERED: Vancomycin IV 1 GM in SODIUM CHLORIDE 0.9% 250ML 250 ML IV SCH (19:45)
[2022-08-29] MEDS ORDERED: ACETAMINOPHEN 325 MG TAB PO ONE (19:45)
[2022-08-29 19:54] LABS: BASOPHILS % 0.3 % (0.0-1.0); EOSINOPHILS % 0.3 % (0.0-6.0); HEMATOCRIT 36.4 % (34.2-44.1); HEMOGLOBIN 11.5 g/dL (12.0-16.0); LYMPHOCYTES # (AUTO) 1.9 (1.0-3.2); LYMPHOCYTES % 11.9 % (18.0-39.1); MEAN CORPUSCULAR HEMOGLOBIN 29.9 pg (28-32); MEAN CORPUSCULAR HGB CONC 31.6 g/dL (31-35); MEAN CORPUSCULAR VOLUME 94.5 fL (81-99); MONOCYTES # (AUTO) 1.1 (0.2-0.8); MONOCYTES % 6.8 % (4.4-11.3); NEUTROPHILS # (AUTO) 12.7 (2.1-6.9); PLATELET COUNT 279 x10e3/uL (140-360); RED BLOOD COUNT 3.85 x10e6/uL (3.6-5.1); RED CELL DISTRIBUTION WIDTH 12.5 % (11.7-14.4)
[2022-08-29 20:02] LABS: INR 1.09; PROTHROMBIN TIME 15.1 seconds (11.9-14.5)
[2022-08-29 20:03] LABS: PARTIAL THROMBOPLASTIN TIME 34.1 seconds (23.8-35.5)
[2022-08-29 20:13] LABS: CALCIUM 9.6 mg/dL (8.4-10.2); CREATININE, SERUM 0.9 mg/dL (0.57-1.11)
[2022-08-29] MEDS ORDERED: ACETAMINOPHEN 325 MG TAB PO PRN (22:30)
[2022-08-29] MEDS ORDERED: ONDANSETRON HCL INJ 2MG/ML 2ML 2 MG/ML VIAL IV PRN (22:30)
[2022-08-30] VITALS (8 sets, daily range): BP systolic 118–140; BP diastolic 52–60
[2022-08-30] MEDS ORDERED: MELOXICAM7.5 MG PO (02:34)
[2022-08-30] MEDS ORDERED: GLIPIZIDE ER5 MG PO (02:34)
[2022-08-30] MEDS ORDERED: UNISOM25 MG PO (02:34)
[2022-08-30] MEDS ORDERED: METFORMIN HCL500 MG PO (02:34)
[2022-08-30 06:10] LABS: BASOPHILS # (AUTO) 0.1 (0.0-0.1); BASOPHILS % 0.6 % (0.0-1.0); EOSINOPHILS # (AUTO) 0.1 (0.0-0.4); EOSINOPHILS % 0.5 % (0.0-6.0); HEMATOCRIT 30.2 % (34.2-44.1); HEMOGLOBIN 9.8 g/dL (12.0-16.0); LYMPHOCYTES # (AUTO) 1.8 (1.0-3.2); LYMPHOCYTES % 14.5 % (18.0-39.1); MEAN CORPUSCULAR HEMOGLOBIN 30.2 pg (28-32); MEAN CORPUSCULAR HGB CONC 32.5 g/dL (31-35); MEAN CORPUSCULAR VOLUME 93.2 fL (81-99); MONOCYTES % 8.2 % (4.4-11.3); NEUTROPHILS # (AUTO) 9.5 (2.1-6.9); NEUTROPHILS % 75.4 % (38.7-80.0); PLATELET COUNT 211 x10e3/uL (140-360); RED BLOOD COUNT 3.24 x10e6/uL (3.6-5.1); RED CELL DISTRIBUTION WIDTH 12.9 % (11.7-14.4)
[2022-08-30 06:24] LABS: ALBUMIN 2.4 g/dL (3.5-5.0); ALBUMIN/GLOBULIN RATIO 0.9 (0.8-2.0); ANION GAP 9.3 mmol/L (8-16); CALCIUM 9.3 mg/dL (8.4-10.2); CREATININE, SERUM 0.86 mg/dL (0.57-1.11); POTASSIUM 4.3 mmol/L (3.5-5.1)
[2022-08-30] MEDS: Vancomycin IV 1 GM in SODIUM CHLORIDE 0.9% 250ML 250 ML IV SCH ×2 (10:24→21:13)
[2022-08-30] MEDS ORDERED: BACITRACIN ZINC 15 GM OINT TOP SCH (15:00)
[2022-08-30] MEDS ORDERED: CEFTRIAXONE 2 GM in SODIUM CHLORIDE 0.9% 100 ML IV SCH ×2 (15:00→17:00)
[2022-08-30] MEDS ORDERED: DOXYLAMINE SUCCINATE 25 MG PO PRN (21:00)
[2022-08-30] MEDS ORDERED: MELOXICAM 7.5 MG TAB PO PRN (21:00)
[2022-08-30] MEDS ORDERED: DICYCLOMINE HCL 20 MG TAB PO PRN (21:00)
[2022-08-30] MEDS ORDERED: MELATONIN 3 MG TAB PO PRN (21:00)
[2022-08-30] MEDS: ATORVASTATIN 40 MG TAB PO SCH (21:12)
[2022-08-30] MEDS: CARVEDILOL 12.5 MG TAB PO SCH (21:12)
[2022-08-30] MEDS: BACITRACIN ZINC 15 GM OINT TOP SCH (21:12)
[2022-08-30] MEDS: ROPINIROLE HCL 1 MG TAB PO SCH (21:12)
[2022-08-30] MEDS: AMLODIPINE BESYLATE 10 MG TAB PO SCH (21:12)
[2022-08-30] MEDS ORDERED: SODIUM CHLORIDE 0.9% 250ML 250 ML ONE (21:34)
[2022-08-31] VITALS (7 sets, daily range): BP systolic 120–143; BP diastolic 50–62
[2022-08-31] MEDS: METFORMIN HCL 500 MG TAB PO SCH ×2 (08:00→17:00)
[2022-08-31] MEDS: NON-FORMULARY MEDICATION (Vit A/Vit C/Vit E/Zinc/Copper (Preservision Areds Softgel) 1 CAP PO SCH (09:00)
[2022-08-31] MEDS ORDERED: GLIPIZIDE 5 MG TAB ER PO SCH (09:00)
[2022-08-31] MEDS: BENAZEPRIL HCL 10 MG TAB PO SCH (09:00)
[2022-08-31] MEDS: ([Iron] 1 TAB) PO SCH (09:00)
[2022-08-31] MEDS: DULOXETINE HCL 30 MG DELAYED RELEASE PO SCH (09:26)
[2022-08-31] MEDS: RALOXIFENE HCL 60 MG TAB PO SCH (09:26)
[2022-08-31] MEDS: HYDROCHLOROTHIAZIDE 25 MG TAB PO SCH (09:26)
[2022-08-31] MEDS: CHOLECALCIFEROL 1,000 UNIT TAB PO SCH (09:26)
[2022-08-31] MEDS: PANTOPRAZOLE SOD 40 MG TABEC PO SCH ×2 (09:26→17:09)
[2022-08-31] MEDS: Vancomycin IV 1 GM in SODIUM CHLORIDE 0.9% 250ML 250 ML IV SCH ×2 (10:19→21:15)
[2022-08-31 10:44] LABS: CLARITY,URINE CLEAR (CLEAR); COLOR,URINE YELLOW (YELLOW); KETONES,URINE TRACE (NEGATIVE); LEUKOCYTE ESTERASE ,URINE NEGATIVE (NEGATIVE); NITRITE,URINE NEGATIVE (NEGATIVE); PROTEIN,URINE DIPSTICK NEGATIVE (NEGATIVE); URINE UROBILINOGEN 0.2 mg/dL (0.2 - 1)
[2022-08-31 10:59] LABS: BACTERIA,URINE FEW /HPF; EPITHELIAL CELLS,URINE FEW /LPF; RBC,URINE 0-5 /HPF (0-5); WBC,URINE (MAN) 0-5 /HPF (0-5)
[2022-08-31] MEDS: ROPINIROLE HCL 1 MG TAB PO SCH (21:13)
[2022-08-31] MEDS: CARVEDILOL 12.5 MG TAB PO SCH (21:14)
[2022-08-31] MEDS: BACITRACIN ZINC 15 GM OINT TOP SCH (21:15)
[2022-08-31] MEDS: AMLODIPINE BESYLATE 10 MG TAB PO SCH (21:15)
[2022-08-31] MEDS: ATORVASTATIN 40 MG TAB PO SCH (21:15)
[2022-09-01] VITALS (8 sets, daily range): BP systolic 112–162; BP diastolic 52–72
[2022-09-01] MEDS ORDERED: GLIPIZIDE 5 MG TAB ER PO SCH (07:30)
[2022-09-01] MEDS: METFORMIN HCL 500 MG TAB PO SCH ×2 (08:00→17:00)
[2022-09-01] MEDS: BENAZEPRIL HCL 10 MG TAB PO SCH (08:32)
[2022-09-01] MEDS: RALOXIFENE HCL 60 MG TAB PO SCH (08:35)
[2022-09-01] MEDS: PANTOPRAZOLE SOD 40 MG TABEC PO SCH ×2 (08:35→17:41)
[2022-09-01] MEDS: Vancomycin IV 1 GM in SODIUM CHLORIDE 0.9% 250ML 250 ML IV SCH ×2 (08:36→17:41)
[2022-09-01] MEDS: CHOLECALCIFEROL 1,000 UNIT TAB PO SCH (08:36)
[2022-09-01] MEDS: DULOXETINE HCL 30 MG DELAYED RELEASE PO SCH (08:36)
[2022-09-01] MEDS: HYDROCHLOROTHIAZIDE 25 MG TAB PO SCH (08:37)
[2022-09-01] MEDS: ([Iron] 1 TAB) PO SCH (09:00)
[2022-09-01] MEDS: NON-FORMULARY MEDICATION (Vit A/Vit C/Vit E/Zinc/Copper (Preservision Areds Softgel) 1 CAP PO SCH (09:00)
[2022-09-01] MEDS: BACITRACIN ZINC 15 GM OINT TOP SCH (17:41)
== END 2022-09-01 20:25 | disposition home health service (06) | DRG 603 ==
LOC: ER 18:58 → ERHOLD 22:30 → MED/SURG3 08-30 00:21
PROC: 02HV33Z Insertion of Infusion Device into Superior Vena Cava, Percutaneous Approach (ICD-10-PCS; principal; 2022-09-01)
DX: L03.115 Cellulitis of right lower limb (principal); L02.415 Cutaneous abscess of right lower limb; B95.62 Methicillin resistant Staphylococcus aureus infection as the cause of diseases classified elsewhere; E03.9 Hypothyroidism, unspecified; I10 Essential (primary) hypertension; Z85.3 Personal history of malignant neoplasm of breast; E11.69 Type 2 diabetes mellitus with other specified complication; E78.5 Hyperlipidemia, unspecified; E11.40 Type 2 diabetes mellitus with diabetic neuropathy, unspecified
CPT/HCPCS: 36415; 36569; 71045; 76882; 80053; 80202; 81001; 82948; 83605; 85025; 85610; 85730; 87040; 87071; 87086; 87186; 87205; 93005; 99251; 99284; J0696; J3370; J7050

== ENCOUNTER → 2022-09-06 | Day surgery (SDC) | payer MEDICARE, BC ==
[2022-08-28 12:22] LABS: BASOPHILS % 0.3 % (0.0-1.0); EOSINOPHILS # (AUTO) 0.1 (0.0-0.4); EOSINOPHILS % 0.8 % (0.0-6.0); HEMATOCRIT 37.6 % (34.2-44.1); HEMOGLOBIN 11.8 g/dL (12.0-16.0); LYMPHOCYTES # (AUTO) 2.6 (1.0-3.2); LYMPHOCYTES % 19.9 % (18.0-39.1); MEAN CORPUSCULAR HEMOGLOBIN 29.6 pg (28-32); MEAN CORPUSCULAR HGB CONC 31.4 g/dL (31-35); MEAN CORPUSCULAR VOLUME 94.5 fL (81-99); MONOCYTES # (AUTO) 1.1 (0.2-0.8); MONOCYTES % 8.6 % (4.4-11.3); NEUTROPHILS # (AUTO) 9.3 (2.1-6.9); NEUTROPHILS % 69.9 % (38.7-80.0); PLATELET COUNT 265 x10e3/uL (140-360); RED BLOOD COUNT 3.98 x10e6/uL (3.6-5.1); RED CELL DISTRIBUTION WIDTH 12.6 % (11.7-14.4)
[~2022-09-06] MED LIST changes: +GLIPIZIDE ER5 MG PO; +PROPOFOL IV EMULSION 10 MG/ML 20 ML VIAL ONE; +UNISOM25 MG PO
[2022-09-06 09:59] VITALS: BP 115/88
== END | disposition home or self-care (01) ==
LOC: ENDO 08:10
PROVIDERS: ATTEND Internal Medicine Gastroenterology
DX: K22.2 Esophageal obstruction (principal); K29.70 Gastritis, unspecified, without bleeding; K31.89 Other diseases of stomach and duodenum; K44.9 Diaphragmatic hernia without obstruction or gangrene; K21.9 Gastro-esophageal reflux disease without esophagitis; E11.9 Type 2 diabetes mellitus without complications; I10 Essential (primary) hypertension; I49.3 Ventricular premature depolarization; Z88.0 Allergy status to penicillin; Z01.812 Encounter for preprocedural laboratory examination; Z79.82 Long term (current) use of aspirin; Z79.84 Long term (current) use of oral hypoglycemic drugs; Z79.899 Other long term (current) drug therapy
CPT/HCPCS: 36415 ×2; 43235; 43450; 82948; 85025; C9113; J2704

== ENCOUNTER 2022-11-03 08:47 | Outpatient (RCR) | payer MEDICARE, BC ==
[~2022-11-03 08:47] MED LIST changes: +CLEOCIN HCL300 MG PO; -PROPOFOL IV EMULSION 10 MG/ML 20 ML VIAL ONE
== END 2022-11-14 ==
LOC: WCC 08:47
PROVIDERS: ATTEND Internal Medicine Infectious Disease
DX: E11.69 Type 2 diabetes mellitus with other specified complication (principal); S81.801A Unspecified open wound, right lower leg, initial encounter; L03.818 Cellulitis of other sites; R60.0 Localized edema; I10 Essential (primary) hypertension; E78.5 Hyperlipidemia, unspecified; I48.20 Chronic atrial fibrillation, unspecified; K57.12 Diverticulitis of small intestine without perforation or abscess without bleeding; K42.9 Umbilical hernia without obstruction or gangrene; M41.9 Scoliosis, unspecified; G90.09 Other idiopathic peripheral autonomic neuropathy; D64.9 Anemia, unspecified; E06.3 Autoimmune thyroiditis; G25.81 Restless legs syndrome; G31.9 Degenerative disease of nervous system, unspecified; H35.3290 Exudative age-related macular degeneration, unspecified eye, stage unspecified; M81.0 Age-related osteoporosis without current pathological fracture; R51.9 Headache, unspecified

== ENCOUNTER → 2022-12-04 | Outpatient (CLI) | payer MEDICARE, BC | LOC: RAD 14:18 | PROVIDERS: ATTEND Internal Medicine Gastroenterology | DX: K59.09 Other constipation (principal) | CPT/HCPCS: 74018 ==

== ENCOUNTER → 2023-03-26 | Outpatient (CLI) | payer MEDICARE, BC | LOC: MRI 10:11 | PROVIDERS: ATTEND Family Medicine | DX: M47.812 Spondylosis without myelopathy or radiculopathy, cervical region (principal); G44.52 New daily persistent headache (NDPH); M54.2 Cervicalgia | CPT/HCPCS: 72141 ==

== ENCOUNTER 2024-09-23 13:34 | Observation (INO) | payer MEDICARE, BC ==
[~2024-09-23] VITALS: Ht 170.2 cm; Wt 61.2 kg
[2024-09-23 13:45] VITALS: PULSE 81; RESP 16; TEMP 98.7
[2024-09-23 14:12] LABS: BASOPHILS % 0.6 % (0.0-1.0); EOSINOPHILS # (AUTO) 0.3 (0.0-0.4); EOSINOPHILS % 3.8 % (0.0-6.0); HEMATOCRIT 35.8 % (34.2-44.1); HEMOGLOBIN 11.5 g/dL (12.0-16.0); LYMPHOCYTES # (AUTO) 1.9 (1.0-3.2); LYMPHOCYTES % 26.8 % (18.0-39.1); MEAN CORPUSCULAR HEMOGLOBIN 28.4 pg (28-32); MEAN CORPUSCULAR HGB CONC 32.1 g/dL (31-35); MEAN CORPUSCULAR VOLUME 88.4 fL (81-99); MONOCYTES # (AUTO) 0.7 (0.2-0.8); MONOCYTES % 9.7 % (4.4-11.3); NEUTROPHILS # (AUTO) 4.2 (2.1-6.9); NEUTROPHILS % 58.8 % (38.7-80.0); PLATELET COUNT 337 x10e3/uL (140-360); RED BLOOD COUNT 4.05 x10e6/uL (3.6-5.1); RED CELL DISTRIBUTION WIDTH 14.1 % (11.7-14.4); WHITE BLOOD COUNT 7.14 x10e3/uL (4.8-10.8)
[2024-09-23 14:15] LABS: INR 0.96; PROTHROMBIN TIME 13.4 seconds (11.9-14.5)
[2024-09-23 14:16] LABS: PARTIAL THROMBOPLASTIN TIME 30.3 seconds (23.8-35.5)
[2024-09-23 14:25] LABS: ALBUMIN 3.4 g/dL (3.5-5.0); ALBUMIN/GLOBULIN RATIO 1.1 (0.8-2.0); ANION GAP 15.5 mmol/L (8-16); BILIRUBIN,TOTAL 0.3 mg/dL (0.2-1.2); CALCIUM 9.8 mg/dL (8.4-10.2); CREATININE, SERUM 0.88 mg/dL (0.57-1.11); MAGNESIUM 1.6 MG/DL (1.3-2.1); POTASSIUM 3.5 mmol/L (3.5-5.1); TOTAL PROTEIN 6.5 g/dL (6.5-8.1)
[2024-09-23 14:30] LABS: TROPONIN I 0.015 ng/mL (0-0.300)
[2024-09-23] MEDS: ONDANSETRON HCL INJ 2MG/ML 2ML 2 MG/ML VIAL IV STA (14:31)
[2024-09-23] MEDS: SODIUM CHLORIDE 0.9% 1000ML 1,000 ML IV STA (14:31)
[2024-09-23] MEDS: GLUCAGON FOR INJ 1 MG VIAL IV ONE (14:32)
[2024-09-23] MEDS: LORAZEPAM INJ 2 MG/ML VIAL IV ONE (14:32)
[2024-09-23] MEDS ORDERED: ONDANSETRON HCL INJ 2MG/ML 2ML 2 MG/ML VIAL IV PRN (15:15)
[2024-09-23] MEDS ORDERED: PROPOFOL IV EMULSION 10 MG/ML 20 ML VIAL ONE (16:25)
[2024-09-23] MEDS ORDERED: FENTANYL CITRATE/PF 100MCG/2 ML INJ ONE (16:25)
[2024-09-23] MEDS ORDERED: ROCURONIUM BROMIDE 1 ML IV ONE (16:26)
[2024-09-23] MEDS ORDERED: LIDOCAINE HCL 2% LOCAL INJ 5 ML SDV VIAL INJ ONE (16:26)
[2024-09-23] MEDS ORDERED: SUCCINYLCHOLINE CHLORIDE 20 MG/ML 10ML VIAL ONE (16:26)
[2024-09-23] MEDS ORDERED: METOCLOPRAMIDE HCL 10 MG/2ML VIAL ONE (16:54)
[2024-09-23] MEDS ORDERED: ONDANSETRON HCL INJ 2MG/ML 2ML 2 MG/ML VIAL ONE (16:54)
[2024-09-23] MEDS ORDERED: DEXAMETHASONE SOD PHOS INJ 4 MG/ML SDV ONE (16:54)
[2024-09-23] MEDS ORDERED: GLYCOPYRROLATE INJ 0.2 MG/ML VIAL ONE (17:15)
[2024-09-23] MEDS ORDERED: NEOSTIGMINE 1 MG/ML 10ML VIAL ONE (17:15)
[2024-09-23 20:00] VITALS: BP 145/55; PULSE 58; RESP 18; TEMP 97.6; O2SAT 99
[2024-09-23] MEDS: SODIUM CHLORIDE 0.9% 1000ML 1,000 ML IV SCH (20:58)
[2024-09-23 21:00] VITALS: BP 145/55; PULSE 58; RESP 18; TEMP 97.6; O2SAT 99
[2024-09-23] MEDS ORDERED: [UNRECOGNIZED DRUG - OTHER] IM (21:35)
[2024-09-23] MEDS ORDERED: MS CONTIN15 MG PO (21:35)
[2024-09-23] MEDS ORDERED: HYDROCODON-ACE1 EA12 PO (21:35)
[2024-09-23] MEDS ORDERED: ACETAMINOPHEN 325 MG TAB PO PRN (23:30)
[2024-09-23] MEDS ORDERED: DICYCLOMINE HCL 20 MG TAB PO PRN (23:30)
[2024-09-23] MEDS ORDERED: MELATONIN 3 MG TAB PO PRN (23:30)
[2024-09-23] MEDS ORDERED: HYDROCODONE/APAP 7.5MG-325MG 1 EA TAB PO PRN (23:30)
[2024-09-24] VITALS: BP 143/57; PULSE 57; RESP 20; TEMP 97.8; O2SAT 99
[2024-09-24 04:00] VITALS: BP 142/51; PULSE 66; RESP 18; TEMP 97.7; O2SAT 100
[2024-09-24 05:39] LABS: BASOPHILS % 0.1 % (0.0-1.0); HEMATOCRIT 34.6 % (34.2-44.1); HEMOGLOBIN 10.4 g/dL (12.0-16.0); LYMPHOCYTES # (AUTO) 1.3 (1.0-3.2); LYMPHOCYTES % 19.2 % (18.0-39.1); MEAN CORPUSCULAR HEMOGLOBIN 28.3 pg (28-32); MEAN CORPUSCULAR HGB CONC 30.1 g/dL (31-35); MONOCYTES # (AUTO) 0.6 (0.2-0.8); MONOCYTES % 8.1 % (4.4-11.3); NEUTROPHILS % 72.2 % (38.7-80.0); PLATELET COUNT 253 x10e3/uL (140-360); RED BLOOD COUNT 3.68 x10e6/uL (3.6-5.1); RED CELL DISTRIBUTION WIDTH 14.3 % (11.7-14.4); WHITE BLOOD COUNT 6.93 x10e3/uL (4.8-10.8)
[2024-09-24 06:08] LABS: ALBUMIN 2.7 g/dL (3.5-5.0); ANION GAP 13.9 mmol/L (8-16); BILIRUBIN,TOTAL 0.2 mg/dL (0.2-1.2); CALCIUM 8.8 mg/dL (8.4-10.2); CREATININE, SERUM 0.8 mg/dL (0.57-1.11); POTASSIUM 3.9 mmol/L (3.5-5.1); TOTAL PROTEIN 5.5 g/dL (6.5-8.1)
[2024-09-24 06:20] LABS: MAGNESIUM 1.7 MG/DL (1.3-2.1)
[2024-09-24 06:33] LABS: FERRITIN 19.1 ng/mL (4.63-204.00); THYROID STIMULATING HORMONE 0.122 uIU/mL (0.350-4.940)
[2024-09-24 08:46] VITALS: BP 142/51; PULSE 66; RESP 18; TEMP 97.7; O2SAT 100
[2024-09-24] MEDS: GLIPIZIDE 5 MG TAB ER PO SCH (09:00)
[2024-09-24] MEDS: DULOXETINE HCL 30 MG DELAYED RELEASE PO SCH (09:00)
[2024-09-24] MEDS: RALOXIFENE HCL 60 MG TAB PO SCH (09:00)
[2024-09-24] MEDS: BENAZEPRIL HCL 10 MG TAB PO SCH (09:01)
[2024-09-24 09:09] VITALS: BP 138/58; PULSE 64; RESP 18; TEMP 98.3; O2SAT 100
[2024-09-24 12:13] VITALS: BP 140/43; PULSE 64; RESP 18; TEMP 98.1; O2SAT 100
[2024-09-24] MEDS ORDERED: PANTOPRAZOLE SO40 MG PO (14:39)
[2024-09-24] MEDS: PANTOPRAZOLE SOD 40 MG TABEC PO SCH (16:33)
[2024-09-24] MEDS ORDERED: AMLODIPINE BESYLATE 10 MG TAB PO SCH (21:00)
[2024-09-24] MEDS ORDERED: CARVEDILOL 3.125 MG TAB PO SCH (21:00)
[2024-09-24] MEDS ORDERED: ATORVASTATIN 40 MG TAB PO SCH (21:00)
== END 2024-09-24 17:04 | disposition home or self-care (01) ==
LOC: ER 13:49 → ERHOLD 15:05 → MED/SURG2 18:36
PROVIDERS: ADMIT Internal Medicine; ATTEND Internal Medicine
DX: T18.128A Food in esophagus causing other injury, initial encounter (principal); K22.2 Esophageal obstruction; E11.9 Type 2 diabetes mellitus without complications; Z79.84 Long term (current) use of oral hypoglycemic drugs; I10 Essential (primary) hypertension; E78.5 Hyperlipidemia, unspecified; E04.1 Nontoxic single thyroid nodule; K44.9 Diaphragmatic hernia without obstruction or gangrene; Z85.3 Personal history of malignant neoplasm of breast; Z90.12 Acquired absence of left breast and nipple; Z88.0 Allergy status to penicillin; Z91.018 Allergy to other foods
CPT/HCPCS: 36415 ×2; 43239; 43247; 43248; 71250; 80053 ×2; 82550; 82607; 82728; 82948; 83540; 83690; 83735 ×2; 84443; 84466; 84484; 85025 ×2; 85610; 85730; 88305; 93005; 99284; G0378 ×2; J0330; J1100; J1610; J2003; J2060; J2405; J2470 ×2; J2704; J2710; J2765; J3010; J7030 ×2; S0164; 43450; 45379

== ENCOUNTER → 2024-10-13 | Outpatient (REF) | payer MEDICARE, BC ==
[~2024-10-13] MED LIST changes: +MS CONTIN15 MG PO; +PANTOPRAZOLE SO40 MG PO; +[UNRECOGNIZED DRUG - OTHER] IM
== END ==
LOC: US 13:00
PROVIDERS: ATTEND Family Medicine
DX: E04.2 Nontoxic multinodular goiter (principal)
CPT/HCPCS: 76536